=== PATIENT | female | born 1990 | race Caucasian/White ===

== ENCOUNTER 2020-01-10 21:04 | Inpatient (IN) | payer MEDICAID, SELFPAY ==
[2020-01-10 21:03] LABS: ROM Internal Control Test YES-OK TO RESULT pt. (Internal QC)
[2020-01-10 21:04] LABS: ROM Patient Test POSITIVE (Negative)
[2020-01-10] MEDS: Lactated Ringers 1,000 ML 50 ML IV (21:15)
[2020-01-10 21:43] LABS: Absolute Lymphocyte Count 2.27 X10^3/uL (0.83-4.51); Absolute Neutrophil Count 5.9 X10^3/uL (2.0-7.7); Basophil# 0.03 X10^3/uL; Basophil% 0.3 % (0-1); Eosinophil# 0.07 X10^3/uL; Eosinophils% 0.8 % (0-5); Hematocrit 34.9 % (37-47); Hemoglobin 11.2 g/dL (12.0-15.0); Lymphocyte # 2.27 X10^3/ul (4.0); Lymphocyte % 24.7 % (19-41); Mean Corp Hgb Conc 32.1 g/dL (32-36); Mean Corpuscular Hgb 26.7 pg (27.0-32.0); Mean Corpuscular Volume 83.1 fL (81-99); Mean Platelet Vol. 12.1 fl (6.2-12.0); Monocyte# 0.94 X10^3/uL; Monocyte% 10.2 % (0-10); NRBC Flagged by Analyzer 0 % (0-5); Neutrophil # 5.85 X10^3/uL (2.7-7.7); Neutrophil % 63.8 % (47-70); Platelet Count 191 K/mm3 (150-450); RBC Distribution Width CV 12.7 % (11.6-14.6); RBC Distribution Width SD 38.3 fl (35.1-43.9); White Blood Count 9.2 K/mm3 (4.4-11.0)
[2020-01-10 21:48] VITALS: BMI 37.1
[2020-01-10 22:10] VITALS: BP 106/61; PULSE 92; TEMP 36.8
[2020-01-10 22:12] VITALS: PULSE 97; O2SAT 98
[2020-01-10 22:17] VITALS: PULSE 93; O2SAT 98
[2020-01-10 22:22] VITALS: PULSE 95; O2SAT 99
[2020-01-10 22:27] VITALS: PULSE 94; O2SAT 99
[2020-01-10 23:02] LABS: Probe Check PASS; SARS-COV-2 DNA by PCR Negative (Negative); Specimen Processing Control PASS
[2020-01-11] VITALS (19 sets, daily range): BP systolic 100–140; BP diastolic 56–100; PULSE 63–109; RESP 16–18; TEMP 36.5–37.7; O2SAT 93–99
[2020-01-11] MEDS: Lactated Ringers 500 ML 999 ML IV (00:13)
[2020-01-11] MEDS: Oxytocin 30 units/NS 500 ml 30 UNITS/500 ML IV.SOLN 334 UNITS IV (00:48)
--- NOTE | 2020-01-11 01:05 | PCM.HP.OB ---
- Problem List (1) Late care Status: Acute (2) History of hypothyroidism Status: Acute (3) History of depression Status: Acute (4) History of precipitous delivery Status: Acute (5) Obesity affecting Status: Acute History Date of Admission: 02/20/17 Final HELEN: 01/14/20 Final HELEN Source: LMP Gestational age: 39 Weeks and 4 Days History of this : This is a 29 year-old, G [3], P [], at 39 weeks gestational age. Presented to labor and delivery with SROM clear fluid around 8:15pm last night. Contractions regular every 2-3 minutes. Good movement. Allergies No Known Allergies Allergy (Verified 01/10/20 22:05) Home Medications: Home Medications Levothyroxine [Synthroid] 50 mcg PO DAILY 04/29/17 Vits [Prenatabs FA] 1 tablet PO DAILY 05/11/17 Smoking Status: Never smoker Alcohol: None Number of Fetus(es): 1 History Past Pregnancies: Past Pregnancies Delivery Date Name GA/ Weeks Outcome Route Wt Sex Labor Length Anesthesia Delivery Location Provider FOB Labs: Mom's Problem List Problem Status Onset Code Late care Acute O09.30 History of hypothyroidism Acute Z86.39 History of depression Acute Z87.59, Z86.59 History of precipitous delivery Acute Z87.59 Obesity affecting Acute O99.210 Mom's Labs & Results 01/10/20 01/10/20 01/10/20 20:50 21:15 21:15 WBC 9.2 RBC 4.20 Hgb 11.2 L Hct 34.9 L MCV 83.1 MCH 26.7 L MCHC 32.1 RDW Std Deviation 38.3 RDW Coeff of Umm 12.7 Plt Count 191 MPV 12.1 H Immature Gran % (Auto) 0.200 Neut % (Auto) 63.8 Lymph % (Auto) 24.7 [place] % (Auto) 10.2 H Eos % (Auto) 0.8 Baso % (Auto) 0.3 Absolute Neuts (auto) 5.9 Absolute Lymphs (auto) 2.27 Nucleated RBC % 0 Vag Amniotic Fld Detect POSITIVE H COVID-19 (CIT[place]Y) Blood Type A POSITIVE Antibody Screen NEGATIVE 01/10/20 01/10/20 21:50 21:50 WBC RBC Hgb Hct MCV MCH MCHC RDW Std Deviation RDW Coeff of Umm Plt Count MPV Immature Gran % (Auto) Neut % (Auto) Lymph % (Auto) [place] % (Auto) Eos % (Auto) Baso % (Auto) Absolute Neuts (auto) Absolute Lymphs (auto) Nucleated RBC % Vag Amniotic Fld Detect COVID-19 (CIT[place]) Cancelled Negative Blood Type Antibody Screen Course Did the patient receive Yes care? Labs Blood Type: A RH: POSITIVE RPR/VDRL/Syphilis Nonreactive Rubella status Immune HbSAg Negative Date Done: 09/22/19 Chlamydia Negative Gonorrhea Negative HIV/AIDS Non-Reactive Group B Strep: Positive Current Obstetrical History Gestational Diabetes No Incompetent Cervix No Infertility No IUGR No Macrosomia No Hypertension/Pre-eclampsia No Placenta Previa/Abruption No PTL/PROM No Uterine anomaly No Oligohydramnios No Polyhydramnios No Multiple gestation No Past Medical History Asthma No Diabetes No Hypertension No Heart disease No Mitral valve prolapse No Neurologic/Seizure disorder/ No Migraines Kidney disease No Liver disease No Varicosities No Clotting disorders/Hx of DVT No Thyroid Dysfunction Yes: hypothyroidism Psychiatric disorders No Major trauma No Abnormal PAP smear No Sleep apnea No Mammogram in the last 2 years No Social History Marital Status: Alleged father Sergey Hx Smoking No Smoking Status Never smoker Physical Exam Vitals: Vital Signs Temp Pulse BP Pulse Ox 98.2 F 109 H 135/100 H 97 01/11/20 00:03 01/11/20 00:04 01/11/20 00:03 01/11/20 00:04 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 A:Active labor, SROM P: 1) Admit too labor and delivery 2) Routine labs 3) COVID rapid test, denies any symptoms 4) Plan for unmedicated 5) Dr.James masterson physician and notified of admission Essential Procedure Criteria Procedure Essential: Yes Criteria Note: On 11/07/2019 the [place] Department of Health ([facility]) Public Order signed by [facility] Director [place] M.D., regarding the Management of Non-Essential Surgeries and Procedures for the purpose of preserving Personal Protective Equipment (PPE) and critical hospital capacity and resources within [place] went into effect as of 11/08/2019 at 5:00PM. According to the [facility] Public Order: This action will remain in full force and effect until the State of Emergency declared by the Governor no longer exists or the Director of the [facility] rescinds or modifies this Order.. This [facility] order stated all non-essential or elective surgeries and procedures that utilize PPE should be delayed unless there is undue risk to the current or future health of a patient. After reviewing the aforementioned [facility] Public Order and the patients clinical case, I have determined that the scheduled procedure meets the criteria to go forward. Risk to Patient if Procedure Delayed: Risk of rapidly worsening to severe symptoms if delayed
--- NOTE | 2020-01-11 01:14 | PCM.OPRPT ---
Problem List (1) Late care Status: Acute (2) History of hypothyroidism Status: Acute (3) History of depression Status: Acute (4) History of precipitous delivery Status: Acute (5) Obesity affecting Status: Acute (6) Vaginal delivery Status: Acute (7) Second degree perineal laceration Status: Acute Vaginal Delivery Maternal Presentation: Active Labor, Spontaneous Rupture of Membranes Amniotic Membrane Rupture Type: Spontaneous at home Amniotic Fluid Description: Clear Final HELEN: 01/14/20 Gestational age: 39 Weeks and 4 Days Date of Procedure: 01/11/20 Pre-Operative Diagnosis: SROM Post-Operative Diagnosis: Vaginal delivery Surgery/ Procedure Performed: Spontaneous Vaginal Delivery Type of Anesthesia: Local with 1% lidocaine Description of Procedure: SROM at home, admitted in labor at 3cm. Called into hospital and patient had delivered. Upon arrival, patient laying on maternal abdomen, strong cry, APGARS 8,9. Baby with good cry. Patient progressed from 7 cm to delivery per nursing staff in 15 minutes. Pitocin started for active 3rd stage management. Cord clamped and cut by FOB. Placenta delivered spontaneously intact, 3 vessel cord via rina. Fundus firm. Perineum inspected and revealed 2nd degree perineal laceration. Repaired with lidocaine and 3.0 vicryl. Well approximated and hemostasis achieved. Patient tolerated well. EBL 200ml. Mom and baby stable. Planning to breastfeed. Family bonding well. notified. Presentation: Vertex Placental Delivery Description: Spontaneous Placenta Disposition: [facility] Cord Vessel Description: 3 Vessels Cord Entanglement: None Estimated Blood Loss: 200 ml A gender: Male (1 minute): 8 (5 minute): 9 Episiotomy Description: None Laceration: Perineal Extension/lac, 2nd degree Medications given after delivery: IV Pitocin
[2020-01-11] MEDS: Acetaminophen 500 MG Tablet 1000 MG PO ×3 (03:10→22:42)
[2020-01-11] MEDS: 0.9% Saline Lock 10 ML Syringe IV (03:53)
[2020-01-11] MEDS: Levothyroxine 50 MCG Tablet PO (06:28)
[2020-01-11] MEDS: Ibuprofen 600 MG Tablet PO ×3 (07:41→23:42)
[2020-01-11] MEDS: Prenatal Vits Tablet 1 TABLET PO (13:04)
--- NOTE | 2020-01-11 15:30 | CASEMGMT ---
Social Work Assessment Labor and Delivery Unit Patient Address: [address] [place] [address] Phone number: [phone] Date of Referral: 01.11.2020 Time of Referral: 829 Referred By: notification by nursing staff, head chargerKIANA Burgess Date of Intervention: 01.11.2020 Time of Intervention: 1529 Reason for Referral: late care. *noted in chart maternal history of depression* History obtained from: medical records and mother of baby (MOB) Thalia Salguero; father of baby (FOB) Sergey Salguero also present. Household composition: MOB, FOB, and two older children. Home situation is reported as safe and adequate. Patient's parent/guardian status: JAMEL is a 29 year old / ([place] decent) female, to FOB Sergey Salguero who is age 28 and of decent. MOB and FOSophie are and have 3 children. Upon admission MOB has denied any concerns for abuse. No indication during assessment of concerns. Minor children are: Leon Salguero (born 12.29.2009), Jessica Salguero (born 02.21.2017), and Tigre Salguero (born 01.11.20). Medical History: JAMEL is G3, P2 to 3 after delivering Tigre. care late starting between 20-23 weeks, but regular thereafter. MOB with history of precipitous deliveries. Baby Tigre was born weighing 9 pounds 3 ounces, Apgars 8 and 9 after . Educational Status: JAMEL has 14 years of education. No issues with reading, writing or learning comprehension. Financial Status: FOB works doing [employer] management. 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. Plans to take time off and be at home with the kids. Supplies: MOB reports to have needed baby supplies, including safe sleep space and car seat. MOB is baby, and reports breastfed last child for over a year. Childcare/Caregiver(s): MOB and then help from FOB. Transportation: No issues. Programs/Agencies Involved: S for medical. No other involvement but reports to be aware of [facility] if needed. Children Services/Legal Issues: None reported. Behavioral Health Issues: Mental Health History: MOB reports thought that may have had some depression after first child was born. MOB reports was a teen mom, first time mom, FOB was going to college, and then other social factors going on in life. MOB reports a brief period after daughter when felt down but overall felt okay. MOB admits at the beginning of MOB was feeling down and weepy and was referred to counseling. MOB did not go as once got home felt okay, and felt that overall it was just a bad day rather than actual depression. No reported history of any suicidal or homicidal ideation. Substance Use History: Denied by MOB and FOB both. Drug Screens: maternal drug screen on 09.22.2019 negative. Baby's urine is negative at delivery. Family/Social Stressors: MOB did have some down days at beginning of , but reports overall feeling okay. MOB admits she was worried about going form 2 to 3 children and how this will be managed. MOB did have late care, reporting that applied for the wrong type of insurance which delayed getting things straight at [employer]. Support Systems: MOB reports to have FOSophie, her grandparents, and FOB's parents around who are helpful. FOB can central supply worker as needed so there is some availability to help out. Depression/Shaken Baby/Safe Sleeping : Educated to drepssoin and anxiety, what to look for, risk factors, and importance of letting others know if symptoms arise. Educated that fathers can also experience . Educated to safe sleeping. Information provided shaken baby prevention. ASSESSMENT: Met with with MOB and FOB in room together. MOB held baby and was attentive baby during social work stay. MOB heads good eye contact. Mood and affect appropriate. MOB and FOB both listened to education provided, and resources available. MOB reports to be feeling okay now, but does worry about transitioning to 3 kids. Normalized worry while also encouraging MOB to ask for help and take time for self when needed, that it is okay to do so and that everyone benefits from extra support once in while. MOB egresses understanding. FOB smiled and nodded head when this was being discussed. MOB reports to have needed supplies, to have support, and also reports to feel a connection to the baby. No voiced concerns by nursing staff on parents/child interactions or bonding. MOB reports it will not be an issue to get the baby to follow up appointments. PLAN: MOB and baby to home when ready. [facility] resource packet given of services providing counseling, parent support, in-kind support. mood and anxiety packet given which including resource for parents. No other services requested or indicated. -RULA Soares, MARGARINE CHURN OPERATOR
[2020-01-12 03:40] VITALS: BP 102/56; PULSE 71; RESP 18; TEMP 36.7
[2020-01-12] MEDS: Ibuprofen 600 MG Tablet PO ×2 (05:43→12:51)
[2020-01-12] MEDS: Levothyroxine 50 MCG Tablet PO (05:43)
--- NOTE | 2020-01-12 07:16 | PCM.PN.OB ---
Patient Problems: Active and Suspected Problems Late care (Acute) History of hypothyroidism (Acute) History of depression (Acute) History of precipitous delivery (Acute) Obesity affecting (Acute) Vaginal delivery (Acute) Second degree perineal laceration (Acute) Subjective: Patient seen at bedside, doing well. Patient reports good pain control. Mild lochia. Breast-feeding going well. Patient is not ready for DC home today per her request. - Physical Exam Vitals/I&O's: Vital Signs Temp Pulse Resp BP Pulse Ox 98.0 F 71 18 102/56 L 98 01/12/20 03:40 01/12/20 03:40 01/12/20 03:40 01/12/20 03:40 01/11/20 02:56 Oxygen Delivery Method Room Air Weight: 104.4 kg Body Mass Index (BMI) 37.1 Intake and Output for Last 24 Hours 01/10/20 01/11/20 01/12/20 23:59 23:59 23:59 Intake Total 225 / 225 1202.33 / 1202.33 Output Total 50 / 50 350 / 350 Balance 175 / 175 852.33 / 852.33 General: Alert, Oriented x3 Extremities: No Calf Tenderness Current Medications Acetaminophen (Tylenol) 1,000 mg PO Q8H PRN PRN PRN Reason: Pain Score 1-10/10 Last Admin: 01/11/20 22:42 Dose: 1,000 mg Documented by: Bisacodyl (Dulcolax) 10 mg RECTAL UD PRN PRN Reason: If no BM Dibucaine (Dibucaine) 1 applic TOPICAL TID PRN PRN; Protocol PRN Reason: Discomfort Hydrocortisone (Hytone) 1 applic TOPICAL TID PRN PRN; Protocol PRN Reason: Discomfort Ibuprofen (Motrin) 600 mg PO Q6H PRN PRN PRN Reason: Pain Score 1-10/10 Last Admin: 01/12/20 05:43 Dose: 600 mg Documented by: Levothyroxine Sodium (Synthroid) 50 mcg PO DAILY@0600 FLASH Last Admin: 01/12/20 05:43 Dose: 50 mcg Documented by: Methylergonovine Maleate (Methergine) 0.2 mg IM X1 PRN PRN Reason: Excess bleeding/uterine atony Ondansetron HCl (Zofran) 4 mg IV Q4H PRN PRN PRN Reason: Nausea Multivit/Folic Acid/Iron (Prenatabs Fa) 1 tablet PO DAILY FLASH Last Admin: 01/11/20 13:04 Dose: 1 tablet Documented by: Senna/Docusate Sodium (Senokot-S, Nikki-Colace) 1 - 2 tablet PO DAILY PRN PRN PRN Reason: Constipation Simethicone (Mylicon) 80 mg PO PCHS PRN PRN Reason: Indigestion/Stomach pain Sodium Chloride () 5 - 15 ml IV UD PRN PRN Reason: SALINE FLUSH Last Admin: 01/11/20 03:53 Dose: 10 ml Documented by: Medical Necessity - Tobacco Use Smoking Status: Never smoker Assessment/Plan All Active Problems Late care (Acute) History of hypothyroidism (Acute) History of depression (Acute) History of precipitous delivery (Acute) Obesity affecting (Acute) Vaginal delivery (Acute) Second degree perineal laceration (Acute) Biliary colic (Acute) PPD#1, doing well routine care pain mgmt
[2020-01-12] MEDS: Acetaminophen 500 MG Tablet 1000 MG PO ×2 (09:02→17:18)
[2020-01-12 09:06] VITALS: BP 105/68; PULSE 75; RESP 18; TEMP 36.6
[2020-01-12] MEDS: Prenatal Vits Tablet 1 TABLET PO (12:51)
[2020-01-12 12:56] VITALS: BP 116/74; PULSE 72; RESP 18; TEMP 36.6; O2SAT 98
[2020-01-12 16:05] VITALS: BP 112/72; PULSE 72; RESP 18; TEMP 36.6; O2SAT 96
[2020-01-12] MEDS: oxyCODONE 5 MG Tablet PO (16:05)
[2020-01-12 21:15] VITALS: BP 115/66; PULSE 70; RESP 18; TEMP 36.7
[2020-01-13 02:28] VITALS: BP 115/73; PULSE 81; RESP 16; TEMP 36.3
[2020-01-13] MEDS: Ibuprofen 600 MG Tablet PO (05:22)
[2020-01-13] MEDS: Acetaminophen 500 MG Tablet 1000 MG PO (05:22)
[2020-01-13] MEDS: Levothyroxine 50 MCG Tablet PO (05:22)
[2020-01-13 07:33] VITALS: BP 102/66; PULSE 91; RESP 16; TEMP 36.7; O2SAT 99
--- NOTE | 2020-01-13 08:20 | DCINST_ITS ---
Discharge Diet: No Restrictions Discharge Activity: Return to Normal Activity, May not drive while taking narcotic pain medications., May Shower May resume sexual activity in: 4-6 weeks Additional Activity Instructions:: Nothing in the vagina for 4-6 weeks. You may return to work/school in 6 weeks. Call your doctor if your incision/area has: Continuous Slow Oozing, Sudden Increased Bleeding, Increased Pain/ Swelling, Increased Redness, Foul Smelling Discharge Additional Instructions: If you experience any of the following, contact your healthcare provider. * Bleeding that soaks a pad every hour for 2 hours * Fever 100.4 or higher * Unrelieved incision or abdominal pain * Swelling, redness, discharge or bleeding from your incision or episiotomy site * Your incision begins to separate * Problems urinating (including inability to urinate or burning while urinating). * Visual changes * Severe headache * Flu-like symptoms * Pain or redness in one of both of your breasts * Pain, warmth, tenderness or swelling in your legs, especially the calf area * Frequent nausea and vomiting * Symptoms of depression or anxiety If you experience any of the following, call 911 or go to the nearest Emergency Room. * Chest pain * Problems breathing * Seizure activity * Partial or complete paralysis of a body part, slurred speech, weakness or drooping of the face, or a sudden inability to walk or hold your balance Allergies/Adverse Reactions: Allergies No Known Allergies Allergy (Verified 01/10/20 22:05) Medications to take at Discharge Levothyroxine [Synthroid] 50 mcg PO DAILY 04/29/17 Vits [Prenatabs FA ] 1 tablet PO DAILY 05/11/17 Ibuprofen [Motrin] 600 mg PO Q6H PRN #60 tab 01/13/20 The following prescriptions were given: Ibuprofen [Motrin] 600 mg PO Q6H PRN #60 tab PRN Reason: Pain Transmission [id number] Please Follow Up With: Kaylyn Oliver, ISIDRO - [phone] When: Call to make an appointment in our office in 1-2 and 6 weeks or as needed Primary Care Physician: Care Physician,No Primary [Primary Care Provider] - Test Results: Test results from this visit will be discussed in further detail at your follow- up appointment, if applicable.
--- NOTE | 2020-01-13 08:20 | PCM.DCVAG ---
Discharge Diet: No Restrictions Discharge Activity: Return to Normal Activity, May not drive while taking narcotic pain medications., May Shower May resume sexual activity in: 4-6 weeks Additional Activity Instructions:: Nothing in the vagina for 4-6 weeks. You may return to work/school in 6 weeks. Call your doctor if your incision/area has: Continuous Slow Oozing, Sudden Increased Bleeding, Increased Pain/ Swelling, Increased Redness, Foul Smelling Discharge Additional Instructions: If you experience any of the following, contact your healthcare provider. Bleeding that soaks a pad every hour for 2 hours Fever 100.4 or higher Unrelieved incision or abdominal pain Swelling, redness, discharge or bleeding from your incision or episiotomy site Your incision begins to separate Problems urinating (including inability to urinate or burning while urinating). Visual changes Severe headache Flu-like symptoms Pain or redness in one of both of your breasts Pain, warmth, tenderness or swelling in your legs, especially the calf area Frequent nausea and vomiting Symptoms of depression or anxiety If you experience any of the following, call 911 or go to the nearest Emergency Room. Chest pain Problems breathing Seizure activity Partial or complete paralysis of a body part, slurred speech, weakness or drooping of the face, or a sudden inability to walk or hold your balance Allergies/Adverse Reactions: Allergies No Known Allergies Allergy (Verified 01/10/20 22:05) Medications to take at Discharge Levothyroxine [Synthroid] 50 mcg PO DAILY 04/29/17 Vits [Prenatabs FA ] 1 tablet PO DAILY 05/11/17 Ibuprofen [Motrin] 600 mg PO Q6H PRN #60 tab 01/13/20 The following prescriptions were given: Ibuprofen [Motrin] 600 mg PO Q6H PRN #60 tab PRN Reason: Pain Transmission Status: Pending to [id number] Please Follow Up With: Kaylyn Oliver, AYANA - [phone] When: Call to make an appointment in our office in 1-2 and 6 weeks or as needed Primary Care Physician: Care Physician,No Primary [Primary Care Provider] - Test Results: Test results from this visit will be discussed in further detail at your follow-up appointment, if applicable.
--- NOTE | 2020-01-13 08:51 | PCM.PN.OB ---
Patient Problems: Active and Suspected Problems Late care (Acute) History of hypothyroidism (Acute) History of depression (Acute) History of precipitous delivery (Acute) Obesity affecting (Acute) Vaginal delivery (Acute) Second degree perineal laceration (Acute) Subjective: Pain well controlled. Average lochia. - Physical Exam Vitals/I&O's: Vital Signs Temp Pulse Resp BP Pulse Ox 98.0 F 91 16 102/66 99 01/13/20 07:33 01/13/20 07:33 01/13/20 07:33 01/13/20 07:33 01/13/20 07:33 Oxygen Delivery Method Room Air Weight: 104.4 kg Body Mass Index (BMI) 37.1 Intake and Output for Last 24 Hours 01/11/20 01/12/20 01/13/20 23:59 23:59 23:59 Intake Total 1202.33 / 1202.33 Output Total 350 / 350 Balance 852.33 / 852.33 General: Alert, Cooperative, No apparent distress Current Medications Acetaminophen (Tylenol) 1,000 mg PO Q8H PRN PRN PRN Reason: Pain Score 1-10/10 Last Admin: 01/13/20 05:22 Dose: 1,000 mg Documented by: Bisacodyl (Dulcolax) 10 mg RECTAL UD PRN PRN Reason: If no BM Dibucaine (Dibucaine) 1 applic TOPICAL TID PRN PRN; Protocol PRN Reason: Discomfort Hydrocortisone (Hytone) 1 applic TOPICAL TID PRN PRN; Protocol PRN Reason: Discomfort Ibuprofen (Motrin) 600 mg PO Q6H PRN PRN PRN Reason: Pain Score 1-10/10 Last Admin: 01/13/20 05:22 Dose: 600 mg Documented by: Levothyroxine Sodium (Synthroid) 50 mcg PO DAILY@0600 FLASH Last Admin: 01/13/20 05:22 Dose: 50 mcg Documented by: Methylergonovine Maleate (Methergine) 0.2 mg IM X1 PRN PRN Reason: Excess bleeding/uterine atony Ondansetron HCl (Zofran) 4 mg IV Q4H PRN PRN PRN Reason: Nausea Oxycodone HCl (Oxyir) 2.5 - 5 mg PO Q4H PRN PRN PRN Reason: Pain Score 4-10/10 Last Admin: 01/12/20 16:05 Dose: 5 mg Documented by: Multivit/Folic Acid/Iron (Prenatabs Fa) 1 tablet PO DAILY FLASH Last Admin: 01/12/20 12:51 Dose: 1 tablet Documented by: Senna/Docusate Sodium (Senokot-S, Nikki-Colace) 1 - 2 tablet PO DAILY PRN PRN PRN Reason: Constipation Simethicone (Mylicon) 80 mg PO PCHS PRN PRN Reason: Indigestion/Stomach pain Sodium Chloride () 5 - 15 ml IV UD PRN PRN Reason: SALINE FLUSH Last Admin: 01/11/20 03:53 Dose: 10 ml Documented by: Medical Necessity - Tobacco Use Smoking Status: Never smoker Assessment/Plan All Active Problems Late care (Acute) History of hypothyroidism (Acute) History of depression (Acute) History of precipitous delivery (Acute) Obesity affecting (Acute) Vaginal delivery (Acute) Second degree perineal laceration (Acute) Biliary colic (Acute) day #2 status post vaginal delivery. Ready for discharge. is under bili lights. Breast-feeding and doing well.
--- OUTSIDE RECORDS SUMMARY | 2020-06-04 15:08 | XMS RPT_ITS | CCD ---
:1990 External Reference #:[id number] Author Organization [facility] Care Team Providers Name Role Phone Margareth NAIDU, Shilpi Unavailable Katelin Doll Unavailable Unavailable Cachorro NAIDU, L Unavailable Medications Medication Name Sig Date Prescriber Location thyroxine SYNTHROID 50 MCG TABS 05-07-2017 [facility] ([id number]) LEVOTHYROXINE SODIUM [id number] Bruno Zuluaga MD SYNTHROID 50 MCG TABS once daily 05-07-2017 [facility] ([id number]) LEVOTHYROXINE SODIUM [id number] Bruno Zuluaga MD SYNTHROID 50 MCG TABS once daily 05-07-2017 [facility] ([id number]) LEVOTHYROXINE SODIUM [id number] Bruno Zuluaga MD SYNTHROID 50 MCG TABS once daily 05-07-2017 [facility] ([id number]) LEVOTHYROXINE SODIUM [id number] Bruno Zuluaga MD SYNTHROID 50 MCG TABS once daily 05-07-2017 [facility] ([id number]) LEVOTHYROXINE SODIUM [id number] Bruno Zuluaga MD SYNTHROID 50 MCG TABS once daily 05-07-2017 [facility] ([id number]) LEVOTHYROXINE SODIUM [id number] Bruno Zuluaga MD Problems Active Problems Category Problem Name Status Date Location Thyroid disorders Hypothyroidism Active 05-07-2017 - [facility] ([id number]) Unclassified Unknown / UNK(Unknown) Active 02-08-2017 - [facility] ([id number]) Past or Other Problems Category Problem Name Status Date Location Biliary tract disease Biliary colic Completed 05-07-2017 - [facility] ([id number]) Results Result Name Value Range Unit Interpretation Flag Date Location cnpn on 2020-03-24 CNPN Telephone (ENDOAL) Normal 03-24-2020 [facility] PAGE SALGUERO ([id number]) 1990 [facility] Date Time Provider Department ([id number]) 03/24/20 SUSHANT STOKES During your visit today, we recorded the following informati on about you: Sushant Stokes DO 03/24/2020 8:09 AM Signed Sent the following via [employer]: Page- Your thyroid studies remain at goal- you should continue lev othyroxine 50 mcg/day + extra 1/2 tab on wed and Wednesday as you are d oing. I would like you to get thyroid studies repeated prior to your follow u p with me next spring- let me know if you need anything in the meantime. Thanks! Dr Stokes Allergies As of Date: 03/24/2020 (No Known Allergies) Date Reviewed: 03/05/2020 Reviewed by: Shellie Forman - Fully Assessed Reason for Visit: Results [95] Cmt: thyorid Primary Visit Diagnosis:Hypothyroidism (acquired) [E03.9] Order(s):TSH BLD [SQTSH] Order #: [id number] FUTURE T4 FREE/FREE THYROX [SQFT4] Order #: [id number] FUTURE Prescriptions as of 03/24/2020 Sig: ETONOGESTREL 68 MG SUBDERMAL * 1 Each by SUBDERMAL route as * LEVOTHYROXINE 50 MCG TABLET One tab daily + 1/2 tab satur* VITAMIN TABLET Take 1 tablet by mouth. Problem List As Of Date 03/24/2020 Noted Resolved Herpes simplex [B00.9] More... [Z34.81] 08/12/2016 01/19/2020 Hypothyroidism [E03.9] 09/05/2016 Hematuria [R31.9] 09/05/2016 01/19/2020 More... Late care affecting in first*09/21/2019 0 01/19/2020 More... History of hypothyroidism [Z86.39] 09/21/2019 01/19/2020 More... History of depression [Z87.59, Z86.5*09/21/2019 0 01/19/2020 More... History of precipitous delivery [Z87.59] 10/20/2019 01/19/20 20 Obesity in , antepartum [O99.210] 10/20/20192019 More... Abnormal glucose in , antepartum [O99.*10/22/2019 0 01/19/2020 More... Obesity, Class II, BMI 35-39.9 [E66.9] 03/05/2020 Encounter Status:Closed by SUSHANT STOKES DO on 03/24/20 tsh on 2020-03-19 TSH Qn 2.160 0.270-4.200 uU/mL Normal 03-19-2020 [facility] ([id number]) Comment: Result Comment: If the patie nt is , TSH reference range varies by gestational period: First Trimester (weeks 9-12) : 0.180-2.990 mcIU/mL Second Trimester: 0.110-3.98 0 mcIU/mL Third Trimester: 0.480-4.710 mcIU/mL Asad Dela Cruz, et al. A Practica l Approach for the Verifications and Determination of Site- and Trimester-Specific Reference Intervals for Thyroid Function tests in . Thyroid, 2019:29:3:412-420. Al cinthia E, et al. 2017 Guide lines of the [employer] [employer] for the Diagnosis and Management of Thyroid Disease during and the . Thyroid, 2017:27:3:315-389. Performed By: #### SYPHTX, R UBIGG, HIV12C, AHCV1B, HBSAG, TSH, T4FTI, T3, CBC #### [facility] [address] [place], [place] [address] t4 on 2020-03-19 T4 [Mass/Vol] 6.0 5.5-10.2 ug/dL Normal 03-19-2020 [facility] ([id number]) Comment: Performed By: #### SYPHTX, R UBIGG, HIV12C, AHCV1B, HBSAG, TSH, T4FTI, T3, CBC #### [facility] [address] [place], [place] [address] free t4 on Free T4 [Mass/Vol] 1.0 0.9-1.7 ng/dL Normal 03-19-2020 [facility] ([id number]) Comment: Performed By: #### SYPHTX, R UBIGG, HIV12C, AHCV1B, HBSAG, TSH, T4FTI, T3, CBC #### [facility] [address] [place], [place] [address] progress on 2020-02 PROGRESS HNO ID: [id number] Normal 03-05-2020 [facility] Author: Shellie Forman [facility] ([id number]) Service: ? Author Type: Physician Type: Progress Notes Filed: 03/05/2020 2:10 PM Note Text: Page Salguero is a 30 year old female who presents for Nexp lanon insertion. Patient's last menstrual period was 05/01/2019. VITALS: LMP 05/01/2019 test: negative Nexplanon lot #: [id number] Exp date: 05/20/2022 UNIVERSAL PROTOCOL / SAFETY CHECKLIST Procedure to be performed: Nexplanon insertion Sign in Communication: Completed Time Out: Team Confirms the Correct Patient, Correct Procedu re, Correct Site and Site Marking, Correct Position (if applicable), Pre p and Dry Time (if applicable). Time: 1402 Affirmation of Time Out: YES Sign Out Discussion: Completed Shellie Forman M.D. TECHNIQUE: Patient placed in supine position with left) bent at the elb ow and placed over the head. Skin cleansed with betadine. 0.5mL of 1% lido michael with 1:100,000 epi injected subQ along insertion site. Nexplanon aziza inserted under sterile technique. The aziza was palpable under the skin after insertion and the notch visible on the trochar after inserti on. Steristrips and sterile pressure dressing applied. AANDP: Nexplanon inserted without complications. Advised to use backup contraception for 7 days. Shellie Forman MD cnov on 2020-03-05 CNOV Office Visit (OBGYWM) Normal 03-05-20 [facility] PAGE SALGUERO ([id number]) 1990 [facility] Date Time Provider Department ([id number]) 03/05/20 1:40 PM SHELLIE FORMAN OBGYWM During your visit today, we recorded the following informati on about you: Blood pressure Weight 110/62 99.3 kg Shellie Forman MD 03/05/2020 2:10 PM Signed Page Salguero is a 30 year old female who presents fo r Nexplanon insertion. Patient's last menstrual period was 05/01/2019. VITALS: LMP 05/01/2019 test: negative Nexplanon lot #: [id number] Exp date: 05/20/2022 UNIVERSAL PROTOCOL / SAFETY CHECKLIST Procedure to be performed: Nexplanon insertion Sign in Communication: Completed Time Out: Team Confirms the Correct Patient, Correct P rocedure, Correct Site and Site Marking, Correct Position (if applicable), Prep and Dry Time (if applicable). Time: 1402 Affirmation of Time Out: YES Sign Out Discussion: Completed Shellie Forman M.D. TECHNIQUE: Patient placed in supine position with l eft) bent at the elbow and placed over the head. Skin cleansed with betadine. 0.5mL of 1% lidocai ne with 1:100,000 epi injected subQ along insertion site. Nexplanon aziza inserted under sterile technique. The aziza was palpable under the skin after i nsertion and the notch visible on the trochar after insertion. Steristrips and ster ile pressure dressing applied. AANDP: Nexplanon inserted without complications. Advised to use backup contraception for 7 days. Shellie Forman MD [facility] 03/05/2020 1:43 PM Signed NEXPLANON PATIENT EDUCATION You may remove dressing in 24 hours. Expect some bruising around insertion site. You may take over the counter pain medication (i.e. Tyleno l, motrin, advil, etc) if you have discomfort. Call your provider with excessive bruising or pain. Continue to use condoms for STD prevention. You should use backup contraception for 7 days to prevent pr egnancy. Referring Provider: SHELLIE FORMAN [[id number]] Allergies As of Date: 03/05/2020 (No Known Allergies) Date Reviewed: 03/05/2020 Reviewed by: Shellie Forman - Fully Assessed Reason for Visit: Contraception [26] Primary Visit Diagnosis:Insertion of implantable subdermal c ontraceptive [Z30.017] Order(s):NEXPLANON INSERTION [1252587] Order #: [id number] [] etonogestrel subdermal implant 68 mg (NEXPLANON)Di sp: Rfl: etonogestrel (NEXPLANON) subdermal implant 68 mg1 Each by ROSS BDERMAL route as directed.Disp: 1 EachRfl: 0 HCG QUAL UR B/O [4035984] Order #: [id number] Prescriptions as of 03/05/2020 Sig: LEVOTHYROXINE 50 MCG TABLET One tab daily + 1/2 tab satur* VITAMIN TABLET Take 1 tablet by mouth. ETONOGESTREL 68 MG SUBDERMAL * 1 Each by SUBDERMAL route as * Problem List As Of Date 03/05/2020 Noted Resolved Herpes simplex [B00.9] More... [Z34.81] 08/12/2016 01/19/2020 Hypothyroidism [E03.9] 09/05/2016 Hematuria [R31.9] 09/05/2016 01/19/2020 More... Late care affecting in first*09/21/2019 0 01/19/2020 More... History of hypothyroidism [Z86.39] 09/21/2019 01/19/2020 More... History of depression [Z87.59, Z86.5*09/21/2019 0 01/19/2020 More... History of precipitous delivery [Z87.59] 10/20/2019 01/19/20 20 Obesity in , antepartum [O99.210] 10/20/20192019 More... Abnormal glucose in , antepartum [O99.*10/22/2019 0 01/19/2020 More... Obesity, Class II, BMI 35-39.9 [E66.9] 03/05/2020 Other instructions from your clinician: NEXPLANON PATIENT EDUCATION You may remove dressing in 24 hours. Expect some bruising around insertion site. You may take over the counter pain medication (i.e. Tylenol, motrin, advil, etc) if you have discomfort. Call your provider with excessive bruising or pain. Continue to use condoms for STD prevention. You should use backup contraception for 7 days to prevent pr egnancy. Prescriptions ordered this encounter Disp Refills Start End ETONOGESTREL 68 MG SUBDERMAL IMPLANT 03/05/2020 03/05/2020 Route: SDRM ETONOGESTREL 68 MG SUBDERMAL IMPLANT 1 Ea* 0 03/05/202002/20 Class: In Office Route: SDRM Si Each by SUBDERMAL route as directed. Encounter Status:Closed by SHELLIE FORMAN MD on 03/05/20 progress on 2020-02 PROGRESS HNO ID: [id number] Normal 02-21-2020 [facility] Author: Shellie Forman [facility] ([id number]) Service: ? Author Type: Physician Type: Progress Notes Filed: 02/21/2020 3:16 PM Note Text: VISIT Obstetric History T3 L3 SAB0 TAB0 Ectopic0 Multiple0 Live Births3 Name of Baby 1: Leon Date: 12/29/09 GA: 37w0d Delivery: Vaginal, Spontaneous Apgar1: Not recorded Apgar5: Not recorded Living: Living Name of Baby 2: Jessica Date: 02/21/17 GA: 39w1d Delivery: Vaginal, Spontaneous Apgar1: 8 Apgar5: 9 Living: Living Name of Baby 3: Moy Date: 01/11/20 GA: 39w4d Delivery: Vaginal, Spontaneous Apgar1: Not recorded Apgar5: Not recorded Living: Living Page Salguero is a 30 year old year old here for po stpartum visit. Delivery Summary: ROS/ Recovery: Feeding: Breast feeding problems: milk was slow to come in Menses since delivery: none Menstrual pattern prior to : Regular periods Mcnair since delivery: Resumed Depression: denies symptoms of depression. (Lines 3 AND 4 applicable if either Lines 1 or 2 are positiv e) 1. Over the past 2 weeks have you felt down, depressed, or h opeless? Negative 2. Over the past two weeks, have you felt little interest or pleasure in doing things? Negative 3. Have you had thoughts of harming yourself or others? N/A 4. [place] Depression Scale (EPDS) Total Score: 0 Emotional support: Yes Bowel symptoms: Negative for abdominal discomfort, blood in stools or black stools and change in bowel habits Abdomen: She reports no incisional redness, tenderness, eryt carlos Bladder symptoms: No dysuria, gross hematuria, urinary frequ ency, urinary urgency, or incontinence Other issues: None Last Pap: 2019 normal HPV: negative PAST MEDICAL HISTORY Diagnosis Date - Chlamydia - Eczema mild - Herpes simplex right cheek - Hypothyroidism 09/05/2016 - depression PAST SURGICAL HISTORY Procedure Laterality Date - CHOLECYSTECTOMY 05/13/2017 FAMILY HISTORY Problem Relation Age of Onset - Hypertension Mother - Eczema Mother - other (sleep apnea) Father - Eczema Sister - Eczema Maternal Grandmother - Diabetes Maternal Grandmother - No Known Problems Maternal Grandfather - No Known Problems Paternal Grandmother - Coronary Artery Disease Paternal Grandfather - No Known Problems Sister - Diabetes Maternal Aunt - No Known Problems Daughter - Asthma Son Social History Tobacco Use - Smoking status: Never Smoker - Smokeless tobacco: Never Used Substance Use Topics - Alcohol use: No - Drug use: No PHYSICAL EXAMINATION: BP 100/64 Wt 219 lb (99.3kg) LMP 05/01/2019 GENERAL: pleasant, female in no apparent distress HEENT: Normocephalic, atraumatic, mucus membranes moist and no lesions NECK: Supple, full range of motion, no adenopathy and thyroi d normal DERMATOLOGY: Normal, without lesions, non-icteric and non-hi rsute BREAST: soft, non-tender, symmetric, no dominant mass, anayeli l nipple-areolar complex, no lymphadenopathy and no nipple dis charge CHEST: Normal inspiratory effort ABDOMEN: soft, non-tender and no masses. INCISION: No incisi onal redness, swelling, or drainage PELVIC: external genitalia normal, normal Bartholin's glands , urethra, Silt's glands, no vulvar lesions, no cervical lesions, good vaginal support, physiologic discharge present, normal appearing per ineal body and perianal region BIMANUAL: uterus normal size, shape and consistency, no adne xal masses and non-tender NEURO: alert and oriented x3,exam grossly non-focal EXTREMITIES: normal ASSESSMENT AND PLAN: 30 year old status post with normal c ourse. Contraception plan: nexplanon Follow up: RTC for annual exams and PRN, return for nexplano n Shellie Forman MD progress on 2020-01 PROGRESS HNO ID: [id number] Normal 02-19-2020 [facility] Author: Sushant Stokes [facility] ([id number]) Service: ? Author Type: Physician Type: Progress Notes Filed: 02/19/2020 12:13 PM Note Text: Reason for Consultation: post f/u - hypothyroidsim. Referring Physician: Kaylyn Fabian APRN.CN [address] [facility] [address] My final recommendations will be communicated back to the re questing physician by way of shared Medical record or letter via US shilpi zavala. HISTORY OF PRESENT ILLNESS; Ms. Salguero is a 30 year old female here for her post par jean paul f/u- she delivered a 9lbs 3oz baby boy on 01/12. Her last visit with shilpi sanz was She was initially diagnosed with a thyroid disorder during in 2017. She has been taking levothyroxine 75 mcg/day since 2017- however stopped taking this prior to her . It was restarted at her first visit with ct - she has continued this after delivery.- current re gimen is levothyroxine 50 mcg/day + extra 1/2 tab on wed and Wednesday. Severity, modifying factors, context and associated signs an d symptoms are as follows: Severity, modifying factors, context and associated signs an d symptoms are as follows: ? Thyroid pain: no ? Mass effect: None ? Energy: stable ? Sleep: up at night with the baby ? Temperature Intolerance: none ? 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 ? GI: denies loose stools, frequent stools or constipation ? Weight: not quite back to prepregnancy weight. ? Eyes: Normal ? Memory: Good ? Diaphoresis: Not significant ? Skin: no issues ? Neuro: negative ? Radiological imaging with contrast dyes within the last 3 months? no ? History of radiation exposure to head or neck area? no PAST MEDICAL HISTORY Diagnosis Date - Chlamydia - Eczema mild - Herpes simplex right cheek - Hypothyroidism 09/05/2016 - depression PAST SURGICAL HISTORY Procedure Laterality Date - CHOLECYSTECTOMY 05/13/2017 FAMILY HISTORY Problem Relation Age of Onset - Hypertension Mother - Eczema Mother - other (sleep apnea) Father - Eczema Sister - Eczema Maternal Grandmother - Diabetes Maternal Grandmother - No Known Problems Maternal Grandfather - No Known Problems Paternal Grandmother - Coronary Artery Disease Paternal Grandfather - No Known Problems Sister - Diabetes Maternal Aunt - No Known Problems Daughter - Asthma Son Social History Tobacco Use - Smoking status: Never Smoker - Smokeless tobacco: Never Used Substance Use Topics - Alcohol use: No - Drug use: No Current Outpatient Medications Medication Sig Dispense Refill - levothyroxine (LEVOXYL) 50 mcg tablet One tab daily + 1/2 tab wednesday and wednesday - Ryuhksmo-Ns-Xey-Fe-FA ( VITAMIN) tab Take 1 tablet by mouth. No current facility-administered medications for this visit. Allergies As of Date: 02/19/2020 (No Known Allergies) Fully Assessed 02/19/2020 REVIEW OF SYSTEMS: General: no fever and no chills, not yet back to prepregnanc y weight. Cardiovascular: denies chest pain, heart palpitations or ort hopnea Resp: denies wheezing, productive cough or exertional dyspne a PHYSICAL EXAM: BP 123/72 Pulse 81 LMP 05/01/2019 GENERAL: Alert, no distress, cooperative SKIN: Skin color, texture, turgor normal. No rashes or lesio ns. HEAD/SINUSES: No significant findings EYES: sclera non-icteric, EOMs intact ,no lid lag or stare. EXTREMITIES: Normal exam of the extremities NEURO: AAO x 3, no focal deficits. The remainder of the physical exam is noncontributory. DATA: Component Latest Ref Rng AND Units 04/12/2018 09/22/20192019 T4 5.5 - 10.2 ug/dL 7.7 10.9 (H) T4 Uptake 0.91 - 1.19 1.39 (H) FTI 6.0 - 11.0 ug/dL 5.5 (L) TSH 0.270 - 4.200 uU/mL 5.780 (H) 3.890 3.460 Free T4 0.9 - 1.7 ng/dL 0.8 (L) Microsomal Antibody Date Value Ref Range Status 11/17/2016 <1.0 <5.6 IU/mL Final ASSESSMENT: Ms. Salguero is a 30 year old female here for her post par jean paul f/u- hx of hypothyroidism. No recent blood work- I advised her as fo llows: RECOMMENDATIONS: 1) for now- continue your current regimen levothyroxine 50 m cg/day + extra 1/2 tab on wed and Wednesday. 2) get blood work when are able- I will report these results to you when available. 3) see me in 9 months (virtual visit) I spent 20 minutes in this visit, with more than 50% of the time devoted to patient counseling. Sushant Stokes DO cnov on 2020-02-19 CNOV Office Visit (ENDOAL) Normal 02-19-[address] [place] [address] Brandy HOUSERASPAGE ([id number]) 1990 [facility] Time Provider Department ([id number]) 02/19/20 11:00 AM SUSHANT STOKES ENDOJENNIE During your visit today, we recorded the following informati on about you: Pulse Blood pressure 81/minute 123/72 Sushant Stokes DO 02/19/2020 12:13 PM Signed Reason for Consultation: post f/u - hypothyroidsim. Referring Physician: Kaylyn Fabian APRN.CN [address] [facility] [address] My final recommendations will be communi cated back to the requesting physician by way of shared Medical record or letter via [place] mail. HISTORY OF PRESENT ILLNESS; Ms. Salguero is a 30 year old female here for her post par jean paul f/u- she delivered a 9lbs 3oz baby boy on 01/12. Her last visit with shilpi sanz was She was initially diagnosed with a thyroid disorder duri ng in 2017. She has been taking levothyroxine 75 mcg/day since 2017- jose patel stopped taking this prior to her . It was restarted at her first visit with me - she has continued this after delivery.- current regimen is levothyroxine 50 mcg/day + extra 1/2 tab on wed and Wednesday. Severity, modifying factors, context and associa bessie signs and symptoms are as follows: Severity, modifying factors, context and associa bessie signs and symptoms are as follows: ? Thyroid pain: no ? Mass effect: None ? Energy: stable ? Sleep: up at night with the baby ? Temperature Intolerance: none ? 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 ? GI: denies loose stools, frequent stools or constipation ? Weight: not quite back to prepregnancy weight. ? Eyes: Normal ? Memory: Good ? Diaphoresis: Not significant ? Skin: no issues ? Neuro: negative ? Radiological imaging with contrast dyes within the last 3 months? no ? History of radiation exposure to head or neck area? no PAST MEDICAL HISTORY Diagnosis Date - Chlamydia - Eczema mild - Herpes simplex right cheek - Hypothyroidism 09/05/2016 - depression PAST SURGICAL HISTORY Procedure Laterality Date - CHOLECYSTECTOMY 05/13/2017 FAMILY HISTORY Problem Relation Age of Onset - Hypertension Mother - Eczema Mother - other (sleep apnea) Father - Eczema Sister - Eczema Maternal Grandmother - Diabetes Maternal Grandmother - No Known Problems Maternal Grandfather - No Known Problems Paternal Grandmother - Coronary Artery Disease Paternal Grandfather - No Known Problems Sister - Diabetes Maternal Aunt - No Known Problems Daughter - Asthma Son Social History Tobacco Use - Smoking status: Never Smoker - Smokeless tobacco: Never Used Substance Use Topics - Alcohol use: No - Drug use: No Current Outpatient Medications Medication Sig Dispense Refill - levothyroxine (LEVOXYL) 50 mcg tablet One tab daily + 1/2 tab wednesday and wednesday - Bnuedaqp-Pm-Dff-F e-FA ( VITAMIN) tab Take 1 tablet by mouth. No current facility-administered medications for this visit. Allergies As of Date: 02/19/2020 (No Known Allergies) Fully Assessed 02/19/2020 REVIEW OF SYSTEMS: General: no fever and no chills, not yet back to prepregnanc y weight. Cardiovascular: denies chest pain, heart palpitations or ort hopnea Resp: denies wheezing, productive cough or exertional dyspne a PHYSICAL EXAM: BP 123/72 Pulse 81 LMP 05/01/2019 GENERAL: Alert, no distress, cooperative SKIN: Skin color, texture, turgor normal. No rashes or lesio ns. HEAD/SINUSES: No significant findings EYES: sclera non-icteric, EOMs intact ,no lid lag or stare. EXTREMITIES: Normal exam of the extremities NEURO: AAO x 3, no focal deficits. The remainder of the physical exam is noncontributory. DATA: Component Latest Ref Rng AND Units 04/12/2018 09/22/20192019 T4 5.5 - 10.2 ug/dL 7.7 10.9 (H) T4 Uptake 0.91 - 1.19 1.39 (H) FTI 6.0 - 11.0 ug/dL 5.5 (L) TSH 0.270 - 4.200 uU/mL 5.780 (H) 3.890 3.460 Free T4 0.9 - 1.7 ng/dL 0.8 (L) Microsomal Antibody Date Value Ref Range Status 11/17/2016 <1.0 <5.6 IU/mL Final ASSESSMENT: Ms. Salguero is a 30 year old female here for her post par jean paul f/u- hx of hypothyroidism. No recent blood work- I advised her as follo ws: RECOMMENDATIONS: 1) for now- continue your current regime n levothyroxine 50 mcg/day + extra 1/2 tab on wed and Wednesday. 2) get blood work when are able- I will report these results to you when available. 3) see me in 9 months (virtual visit) I spent 20 minutes in this visit, with more than 50% of e time devoted to patient counseling. DO Sushant Streeter DO 02/19/2020 11:26 AM Addendum 1) for now- continue your current regime n levothyroxine 50 mcg/day + extra 1/2 tab on wed and Wednesday. 2) get blood work when are able- I will report these results to you when available. 3) see me in 9 months (virtual visit) Referring Provider: SUSHANT STOKES [[id number]] Allergies As of Date: 02/19/2020 (No Known Allergies) Date Reviewed: 02/19/2020 Reviewed by: Darlene Brooks MA - Fully Assessed Reason for Visit: Follow Up [171] Primary Visit Diagnosis:Hypothyroidism (acquired) [E03.9] Order(s):TSH BLD [SQTSH] Order #: [id number] FUTURE T4 FREE/FREE THYROX [SQFT4] Order #: [id number] FUTURE Prescriptions as of 02/19/2020 Sig: LEVOTHYROXINE 50 MCG TABLET One tab daily + 1/2 tab satur* VITAMIN TABLET Take 1 tablet by mouth. Problem List As Of Date 02/19/2020 Noted Resolved Herpes simplex [B00.9] More... [Z34.81] 08/12/2016 01/19/2020 Hypothyroidism [E03.9] 09/05/2016 Hematuria [R31.9] 09/05/2016 01/19/2020 More... Late care affecting in first*09/21/2019 0 01/19/2020 More... History of hypothyroidism [Z86.39] 09/21/2019 01/19/2020 More... History of depression [Z87.59, Z86.5*09/21/2019 0 01/19/2020 More... History of precipitous delivery [Z87.59] 10/20/2019 01/19/20 20 Obesity in , antepartum [O99.210] 10/20/20192019 More... Abnormal glucose in , antepartum [O99.*10/22/2019 0 01/19/2020 More... Other instructions from your clinician: 1) for now- continue your current regimen levothyroxine 50 m cg/day + extra 1/2 tab on wed and Wednesday. 2) get blood work when are able- I will report these results to you when available. 3) see me in 9 months (virtual visit) Follow-up and Disposition History Recorded Encounter Status:Closed by SUSHANT STOKES DO on 02/19/20 progress on 2019-12 PROGRESS HNO ID: [id number] Normal 01-19-2020 [facility] Author: Shellie Rush ([id number]) Service: ? Author Type: Physician Type: Progress Notes Filed: 01/19/2020 2:39 PM Note Text: EARLY VISIT Page Salguero is a 29 year old here for 1 week post visit. Delivery Summary: ROS: General: Denies any fever or chills Hypertension Screening: ? Headache? No. ? Visual Changes? No ? Epigastric Pain? No ? Increased Swelling? No ? Taking any BP medications at home? No ? If applicable, monitoring BP at home? (If Yes, include res ults) NA Mood: normal Depression: denies symptoms of depression. (Lines 3 AND 4 applicable if either Lines 1 or 2 are positiv e) 1. Over the past 2 weeks have you felt down, depressed, or h opeless? 2. Over the past two weeks, have you felt little interest or pleasure in doing things? 3. Have you had thoughts of harming yourself or others? N/A 4. [place] Depression Scale (EPDS) Total Score: N/A Feeding: Breast and bottle feeding problems: I nadequate milk supply so supplementing after Bladder: No dysuria, gross hematuria, urinary frequency, uri nary urgency, or incontinence Bowel symptoms: Negative for abdominal discomfort, blood in stools or black stools and change in bowel habits Abdomen: N/A Bleeding: light flow Bottom and Perineum: No issues Sleep: no sleep concerns, feels rested IEmotional support: Yes Exercise: N/A Other issues: None PHYSICAL EXAMINATION: LMP 05/01/2019 General: pleasant,female in no apparent distress, AANDO x 3. Skin warm and intact. ASSESSMENT AND PLAN: 1. 29 year old status post with normal postpartu m course. 2. Contraception plan: considering . Reinforced 6-week pelvi c rest. Encouraged condom usage should patient deviate. Follow up: Return to Clinic for 6 week visit and as needed Shellie Forman MD progress on 2019-12 PROGRESS HNO ID: [id number] Normal 01-12-2020 [facility] Author: Corinne Craft LPN ([id number]) Service: ? Author Type: ? Type: Progress Notes Filed: 01/12/2020 9:25 AM Note Text: Pt delivered via at [facility] on 01/11/20 per KENYA Mancini See OB Outcome note. Corinne Craft [employer] progress on 2019-12 PROGRESS HNO ID: [id number] Normal 01-03-2020 [facility] Author: Sahra Watson Brule ([id number]) Service: ? Author Type: Physician Type: Progress Notes Filed: 01/03/2020 9:36 AM Note Text: SW- Virtual visit today. No regular ctx's. No VB, LOF. Good FM. PE: Gen- NAD, well appearing See flowsheet A/p 38 wk gestation - H/o rapid labor and GBS pos. Discussed labor precautions a nd when to call/come in. Reviewed possible 40 wk IOL pending cervical e xam at next visit - Discussed upcoming expectations - RTO 1 wk for in office appointment Sahra Watson, DO Sahra Watson, DO group b strep pcr o n 2019-12-13 GROUP B STREP Positive for Group B Critically 11-22 [facility] PCR Streptococcus by PCR. abnormal [place] ([id number]) If susceptibility testing is needed and was not requested with initial test order, call lab ([phone]) within 5 days to initiate workup. Comment: Performed By: #### SYPHTX, R UBIGG, HIV12C, AHCV1B, HBSAG, TSH, T4FTI, T3, CBC #### [facility] [address] [place], [place] [address] progress on 2019-11 PROGRESS HNO ID: [id number] Normal 11-29-2019 [facility] Author: Alesha Rush ([id number]) Service: ? Author Type: Mail Handler Assistant Type: Progress Notes Filed: 11/29/2019 11:44 AM Note Text: Patient identified by name and date of . Page Salguero presents today for a vaccination of Tdap. Patient denies an allergy to latex: yes Patient denies a severe (life-threatening) allergy to a prev ious dose of Tdap, DTP, DTaP, DT or Td vaccine. Yes Patient denies history of epilepsy or neurological problems: Yes Patient is afebrile and denies being moderately or severely ill: Yes Patient denies history of Guillain-[place] Syndrome (a severe paralytic illness): Yes Tdap Adacel injection was given without incident. See immunizations for details of immunizations administered today. VIS sheet provided: Yes Provider Sahra Watson DO was present in office at time of i njection. Alesha Mojica MA cnco on 2019-11-25 CNCO Letter Text Normal 11-25-2019 [facility] ([id number]) tsh on 2019-11-21 TSH Qn 3.460 0.270-4.200 uU/mL Normal 11-21-2019 [facility] ([id number]) Comment: Result Comment: If the patie nt is , TSH reference range varies by gestational period: First Trimester (weeks 9-12) : 0.180-2.990 mcIU/mL Second Trimester: 0.110-3.98 0 mcIU/mL Third Trimester: 0.480-4.710 mcIU/mL Asad Dela Cruz et al. A Practica l Approach for the Verifications and Determination of Site- and Trimester-Specific Reference Intervals for Thyroid Function tests in . Thyroid, 2019:29:3:412-420. Al cinthia E, et al. 2017 Guide lines of the [place] [employer] for the Diagnosis and Management of Thyroid Disease during and the . Thyroid, 2017:27:3:315-389. Performed By: #### TSH, T4 # ###[facility] [place], [place] [phone]- [phone] t4 on 2019-11-21 T4 [Mass/Vol] 10.9 5.5-10.2 ug/dL High 11-21-2019 [facility] ([id number]) Comment: Performed By: #### TSH, T4 # ###[facility] [place], [place] [phone] progress on 2019-10 PROGRESS HNO ID: [id number] Normal 11-17-2019 [facility] Author: Sahra Watson ([id number]) Service: ? Author Type: Physician Type: Progress Notes Filed: 11/22/2019 4:08 PM Note Text: Kick counts good today BP today - 136/81, HR 86 Reviewed coronavirus RTO 2 wks Tdap shot progress on 2019-10 PROGRESS HNO ID: [id number] Normal 11-03-2019 [facility] Author: Kenny Peña ([id number]) Service: ? Author Type: Physician Type: Progress Notes Filed: 11/03/2019 10:27 AM Note Text: Please see ultrasound report for details of this visit. Kenny Peña M.D. progress on 2019-10 PROGRESS HNO ID: [id number] Normal 10-28-2019 [facility] Author: Sushant Rush ([id number]) Service: ? Author Type: Physician Type: Progress Notes Filed: 10/28/2019 1:17 PM Note Text: Patient presents with: Urinary Frequency Abdominal Pain HPI: Symptoms since last night. Dysuria: No Frequency: Yes Hematuria: No Nausea: nausea last night Fever or chills: No Back pain: No Abdominal pain: lower cramping Prior UTI: Yes Personal history of kidney stones: No Family history of kidney stones: Mother Almost 29 weeks pregant. MEDICATIONS: Current Outpatient Medications Medication Sig - levothyroxine (LEVOXYL) 50 mcg tablet Take 1 tablet by woody th once daily. - Xlaxppcb-Ia-Vvq-Fe-FA ( VITAMIN) tab Take 1 tablet by mouth. No current facility-administered medications for this visit. ALLERGIES: ALLERGIES No Known Allergies VITALS: BP 100/66 Pulse 92 Temp 37 ?C (98.6 ?F) (Tympanic) Res p 20 Wt 97.1 kg (214 lb) LMP 05/01/2019 BMI 34.54 kg/m? PHYSICAL EXAM: GEN: NAD HEENT: EOMI, conjunctiva clear, moist mucous membranes HEART: regular rate and rhythm, no murmurs LUNGS: clear to auscultation, no wheezes or crackles, no inc reased WOB ABDOMEN: Gravid, Soft, left and right lower pelvic tendernes s BACK: No CVA tenderness ASSESSMENT/PLAN: 1. Urinary frequency - ICD9: 788.41, ICD10: R35.0 (primary d iagnosis) 2. Lower abdominal pain - ICD9: 789.09, ICD10: R10.30 - UA DIP, URINE (POC) - negative, normal F/u in the ER with bloody discharge, fluid leaking, or worse keon cramps. Sushant Calderon MD cnov on 2019-10-28 CNOV Office Visit (UCWSTR) Normal 10-28-19 [facility] PAGE Sampson ([id number]) 1990 [facility] Date Time Provider Department ([id number]) 10/28/19 1:00 PM SUSHANT CALDERON [facility] During your visit today, we recorded the following informati on about you: Temperature Pulse Respiration Blood pressure 98.6 degrees 92/minute 20/minute 100/66 Weight 97.1 kg Sushant Calderon MD 10/28/2019 1:17 PM Signed Patient presents with: Urinary Frequency Abdominal Pain HPI: Symptoms since last night. Dysuria: No Frequency: Yes Hematuria: No Nausea: nausea last night Fever or chills: No Back pain: No Abdominal pain: lower cramping Prior UTI: Yes Personal history of kidney stones: No Family history of kidney stones: Mother Almost 29 weeks pregant. MEDICATIONS: Current Outpatient Medications Medication Sig - levothyroxine (LEVOXYL) 50 mcg tablet Take 1 tablet by woody th once daily. - Fswxqtat-Or-Gfd-F e-FA ( VITAMIN) tab Take 1 tablet by mouth. No current facility-administered medications for this visit. ALLERGIES: ALLERGIES No Known Allergies VITALS: BP 100/66 Pulse 92 Temp 37 ?C (98.6 ?F) (Tympanic) Res p 20 Wt 97.1 kg (214 lb) LMP 05/01/2019 BMI 34.54 kg/m? PHYSICAL EXAM: GEN: NAD HEENT: EOMI, conjunctiva clear, moist mucous membranes HEART: regular rate and rhythm, no murmurs LUNGS: clear to auscultation, no wheezes or crackles, no inc reased WOB ABDOMEN: Gravid, Soft, left and right lower pelvic tendernes s BACK: No CVA tenderness ASSESSMENT/PLAN: 1. Urinary frequency - ICD9: 788.41, ICD10: R35.0 (primary d iagnosis) 2. Lower abdominal pain - ICD9: 789.09, ICD10: R10.30 - UA DIP, URINE (POC) - negative, normal F/u in the ER with bloody discharge, fluid leaking, or worse keon cramps. Sushant Calderon MD Referring Provider: SELF [[id number]] Allergies As of Date: 10/28/2019 (No Known Allergies) Date Reviewed: 10/28/2019 Reviewed by: Nhi Avelar LPN - Fully Assessed Reason for Visit: Urinary Frequency [1086] Abdominal Pain [1] Primary Visit Diagnosis:Urinary frequency [R35.0] Other Visit Diagnosis:Lower abdominal pain [R10.30] Order(s):UA DIP, URINE (POC) [[id number]] Order #: [id number] . #:[id number] Prescriptions as of 10/28/2019 Sig: LEVOTHYROXINE 50 MCG TABLET Take 1 tablet by mouth once d* VITAMIN TABLET Take 1 tablet by mouth. Problem List As Of Date 10/28/2019 Noted Resolved Herpes simplex [B00.9] More... [Z34.81] 08/12/2016 Hypothyroidism [E03.9] 09/05/2016 Hematuria [R31.9] 09/05/2016 More... Late care affecting in first*09/21/2019 More... History of hypothyroidism [Z86.39] 09/21/2019 More... History of depression [Z87.59, Z86.5*09/21/2019 More... History of precipitous delivery [Z87.59] 10/20/2019 Obesity in , antepartum [O99.210] 10/20/2019 More... Abnormal glucose in , antepartum [O99.*10/22/2019 More... Encounter Status:Closed by SUSHANT CALDERON MD on 10/28/19 progress on 2019-10 PROGRESS HNO ID: [id number] Normal 10-24-2019 [facility] Author: Sushant Rush ([id number]) Service: ? Author Type: Physician Type: Progress Notes Filed: 10/24/2019 3:38 PM Note Text: Reason for Consultation: hypothyroidism complicating pregnan cy. Referring Physician: Kaylyn Fabian APRN.CNM [address] [facility] [address] My final recommendations will be communicated back to the re questing physician by way of shared Medical record or letter via [facility]. HISTORY OF PRESENT ILLNESS; Ms. Salguero is a 29 year old F at 28 weeks gestation pres enting as a new patient to me, follow up to our department regarding hyp othyroidism complicating . She has seen Dr Martinez previously- not since 05/2018. She was initially diagnosed with a thyroid disorder during in 2017. She has been taking levothyroxine 75 mcg/ day since 2017 (stopped taking this a few months ago- lost insurance, etc). Most recent blood work as below. Severity, modifying factors, con text and associated signs and symptoms are as follows: ? Thyroid pain: no ? Mass effect: None ? Energy: stable and OK ? Sleep: Restless ? Temperature Intolerance: not significant ? [employer] ADMINISTRATIVE LAW JUDGE: gravid at 28 weeks gestation. ? GI: denies loose stools, frequent stools or constipation ? Weight: increased, appropriate for . ? Eyes: Normal ? Memory: Good ? Diaphoresis: Not significant ? Skin: no issues. ? Neuro: negative, no headache or tremor ? Radiological imaging with contrast dyes within the last 3 months? no ? History of radiation exposure to head or neck area? no Also of note - she has an abnormal 1 hour GTT- not yet taken 3 hour GTT. Last visit with OB was 10/20- last U/S was 10/05- EFW 42nd, AC 72nd , TAMI NL - not finding out gender. PAST MEDICAL HISTORY Diagnosis Date - Chlamydia - Eczema mild - Herpes simplex right cheek - Hypothyroidism 09/05/2016 - depression PAST SURGICAL HISTORY Procedure Laterality Date - CHOLECYSTECTOMY 05/13/2017 FAMILY HISTORY Problem Relation Age of Onset - Hypertension Mother - Eczema Mother - other (sleep apnea) Father - Eczema Sister - Eczema Maternal Grandmother - Diabetes Maternal Grandmother - No Known Problems Maternal Grandfather - No Known Problems Paternal Grandmother - Coronary Artery Disease Paternal Grandfather - No Known Problems Sister - Diabetes Maternal Aunt - No Known Problems Daughter - Asthma Son Social History Tobacco Use - Smoking status: Never Smoker - Smokeless tobacco: Never Used Substance Use Topics - Alcohol use: No - Drug use: No Current Outpatient Medications Medication Sig Dispense Refill - Beflwmji-Ty-Sfi-Fe-FA ( VITAMIN) tab Take 1 tablet by mouth. - levothyroxine (SYNTHROID) 75 mcg tablet Take 1 tablet by m outh once daily. (Patient not taking: Reported on 09/21/2019 ) 30 tablet 11 No current facility-administered medications for this visit. Allergies As of Date: 10/24/2019 (No Known Allergies) Fully Assessed 10/20/2019 REVIEW OF SYSTEMS: General: no fever and no chills Cardiovascular: denies chest pain, heart palpitations or ort hopnea Resp: denies wheezing, productive cough or exertional dyspne a PHYSICAL EXAM: BP 108/62 Pulse 85 Ht 167.6 cm (5' 6) Wt 98.4 kg (217 lb) LMP 05/01/2019 BMI 35.02 kg/m? GENERAL: Alert, no distress, cooperative SKIN: Skin color, texture, turgor normal. No rashes or lesio ns. HEAD/SINUSES: No significant findings EYES: sclera non-icteric, no lid lag or stare. LUNGS: Lungs clear to auscultation, Good diaphragmatic excur van CARDIAC: Normal S1 and S2; no rubs, murmurs, or gallops ABDOMEN: gravid at 28 weeks. EXTREMITIES: Normal exam of the extremities NEURO: AAO x 3, no focal deficit.s The remainder of the physical exam is noncontributory. DATA: Component Latest Ref Rng AND Units 10/06/2016 11/17/2016201604/12/2018 09/22/2019 T4 5.5 - 10.2 ug/dL 7.7 T4 Uptake 0.91 - 1.19 1.39 (H) FTI 6.0 - 11.0 ug/dL 5.5 (L) TSH 0.270 - 4.200 uU/mL 2.080 2.220 3.400 5.780 (H) 3.890 Free T4 0.9 - 1.7 ng/dL 0.9 1.0 0.8 (L) Free T3 2.3 - 4.1 pg/mL 2.6 T3 79 - 165 ng/dL 189 (H) Microsomal Antibody Date Value Ref Range Status 11/17/2016 <1.0 <5.6 IU/mL Final RADIOLOGY: US Thyroid was not done. ASSESSMENT: Ms. Salguero is a 29 year old F at 28 weeks gestation here regarding hypothyroidsim complicating . RECOMMENDATIONS: Untreated hypothyroidism in can be associated with adverse outcomes of mother and offspring such as neurological impair ment in the developing fetus, delivery/low weight, gestati onal hypertension, preeclampsia, post hemorrhage, and plac ental abruption. TSH greater than 2.5 and antibody positivity has been associated with early miscarriage as well, even with normal free hormone levels. Subclinical hypothyroidism has been associated these adverse sequelae, however less frequently than with overt hypothyroi dism. Also, treatment with T4 has been proven to reduce the risks of adv erse obstetrical outcomes, and is therefore recommended by endocr ine society. I advised her as follows: 1) restart levothyroxine 50 mcg/day. rx sent to her pharmacy . 2) get blood work in 4 weeks- I will report these results to you when available. 3) send me a [employer] message with your glucose tolerance mavis t results 4) follow up with me february 18 (post f/u) with blood wo rk prior (sooner as indicated) I spent 25 minutes in this visit, with more than 50% of the time devoted to patient counseling. DO kenya Streeterov on 2019-10-24 CNOV Office Visit (ENDOAL) Normal 10-24-[address] [place] [address] [facility] NOEMYPAGE ([id number]) 1990 [address] [place] Date Time Provider Department ([id number]) 10/24/19 2:40 PM SUSHANT STOKES During your visit today, we recorded the following informati on about you: Pulse Blood pressure Weight Height 85/minute 108/62 98.4 kg 1.676 m Sushant Stokes DO 10/24/2019 3:38 PM Signed Reason for Consultation: hypothyroidism complicating pregnan cy. Referring Physician: Kaylyn Fabian APRN.CNM [address] [facility] [address] My final recommendations will be communi cated back to the requesting physician by way of shared Medical record or letter via US mail. HISTORY OF PRESENT ILLNESS; Ms. Salguero is a 29 year old F at 28 weeks gestation pr esenting as a new patient to me, follow up to our department regarding hypothy roidism complicating . She has seen Dr Maritnez previously- n ot since 05/2018. She was initially diagnosed with a thyroid disor christi during in 2016. She has been taking levothyroxine 75 mcg /day since 2017 (stopped taking this a few months ago- lost insurance, etc). Most recent blood work as below. Severity, modifying factors, context and associa bessie signs and symptoms are as follows: ? Thyroid pain: no ? Mass effect: None ? Energy: stable and OK ? Sleep: Restless ? Temperature Intolerance: not significant ? US ADMINISTRATIVE LAW JUDGE: gravid at 28 weeks gestation. ? GI: denies loose stools, frequent stools or constipation ? Weight: increased, appropriate for . ? Eyes: Normal ? Memory: Good ? Diaphoresis: Not significant ? Skin: no issues. ? Neuro: negative, no headache or tremor ? Radiological imaging with contrast dyes within the last 3 months? no ? History of radiation exposure to head or neck area? no Also of note - she has an abnormal 1 hour GTT- not yet taken 3 hour GTT. Last visit with OB was 10/20- last U/S was 10/05- EFW [address], AC [address] , TAMI NL - not finding out gender. PAST MEDICAL HISTORY Diagnosis Date - Chlamydia - Eczema mild - Herpes simplex right cheek - Hypothyroidism 09/05/2016 - depression PAST SURGICAL HISTORY Procedure Laterality Date - CHOLECYSTECTOMY 05/13/2017 FAMILY HISTORY Problem Relation Age of Onset - Hypertension Mother - Eczema Mother - other (sleep apnea) Father - Eczema Sister - Eczema Maternal Grandmother - Diabetes Maternal Grandmother - No Known Problems Maternal Grandfather - No Known Problems Paternal Grandmother - Coronary Artery Disease Paternal Grandfather - No Known Problems Sister - Diabetes Maternal Aunt - No Known Problems Daughter - Asthma Son Social History Tobacco Use - Smoking status: Never Smoker - Smokeless tobacco: Never Used Substance Use Topics - Alcohol use: No - Drug use: No Current Outpatient Medications Medication Sig Dispense Refill - Zlllncvn-En-Krn-F e-FA ( VITAMIN) tab Take 1 tablet by mouth. - levothyroxine (SYNTHROID) 75 mcg tablet Take 1 table t by mouth once daily. (Patient not taking: Reported on 09/21/2019 ) 30 tablet 11 No current facility-administered medications for this visit. Allergies As of Date: 10/24/2019 (No Known Allergies) Fully Assessed 10/20/2019 REVIEW OF SYSTEMS: General: no fever and no chills Cardiovascular: denies chest pain, heart palpitations or ort hopnea Resp: denies wheezing, productive cough or exertional dyspne a PHYSICAL EXAM: BP 108/62 Pulse 85 Ht 167.6 cm (5' 6) Wt 98.4 kg (217 lb) LMP 05/01/2019 BMI 35.02 kg/m? GENERAL: Alert, no distress, cooperative SKIN: Skin color, texture, turgor normal. No rashes or lesio ns. HEAD/SINUSES: No significant findings EYES: sclera non-icteric, no lid lag or stare. LUNGS: Lungs clear to auscultation, Good diaphragmatic excur van CARDIAC: Normal S1 and S2; no rubs, murmurs, or gallops ABDOMEN: gravid at 28 weeks. EXTREMITIES: Normal exam of the extremities NEURO: AAO x 3, no focal deficit.s The remainder of the physical exam is noncontributory. DATA: Component Latest Ref Rng AND Units 10/06/2016 11/17/2016201604/12/2018 09/22/2019 T4 5.5 - 10.2 ug/dL 7.7 T4 Uptake 0.91 - 1.19 1.39 (H) FTI 6.0 - 11.0 ug/dL 5.5 (L) TSH 0.270 - 4.200 uU/mL 2.080 2.220 3.400 5.780 (H) 3.890 Free T4 0.9 - 1.7 ng/dL 0.9 1.0 0.8 (L) Free T3 2.3 - 4.1 pg/mL 2.6 T3 79 - 165 ng/dL 189 (H) Microsomal Antibody Date Value Ref Range Status 11/17/2016 <1.0 <5.6 IU/mL Final RADIOLOGY: US Thyroid was not done. ASSESSMENT: Ms. Noemy is a 29 year old F at 28 weeks gestation here regarding hypothyroidsim complicating . RECOMMENDATIONS: Untreated hypothyroidism in can be ass ociated with adverse outcomes of mother and offspring such as neurological impairment in t he developing fetus, delivery/low weight, gestational hypert ension, preeclampsia, post he morrhage, and placental abruption. TSH greater than 2.5 and antibody positivity has been associated with early miscarriage as well, even with normal free hormone levels. Subclinical hypothyroi dism has been associated these adverse sequelae, however less frequently t payne with overt hypothyroidism. Also, treatment with T4 has been proven to reduce the risks of adverse obstetrical outcomes, and is therefore recommended b y endocrine society. I advised her as follows: 1) restart levothyroxine 50 mcg/day. rx sent to her pharmacy . 2) get blood work in 4 weeks - I will report these results to you when available. 3) send me a [employer] message with your glucose tolerance mavis t results 4) follow up with ct february 18 (post f/u) with blood work prior (sooner as indicated) I spent 25 minutes in this visit, with more than 50% of e time devoted to patient counseling. DO Sushant Streeter DO 10/24/2019 3:10 PM Signed 1) restart levothyroxine 50 mcg/day 2) get blood work in 4 weeks - I will report these results to you when available. 3) send me a [employer] message with your glucose tolerance mavis t results 4) follow up with ct february 18 (post f/u) with blood work prior (sooner as indicated) Referring Provider: KAYLYN FABIAN ([facility]) [[id number]] Allergies As of Date: 10/24/2019 (No Known Allergies) Date Reviewed: 10/24/2019 Reviewed by: Sushant Stokes - Fully Assessed Reason for Visit: New Patient [172] Primary Visit Diagnosis:History of hypothyroidism [Z86.39] Other Visit Diagnosis:Thyroid dysfunction in in th ird trimester [O99.283, E07.9] Order(s):TSH BLD [SQTSH] Order #: [id number] FUTURE T4/THYROXINE BLOOD [SQT4] Order #: [id number] FUTURE levothyroxine (LEVOXYL) 50 mcg tabletTake 1 tablet by mouth once daily.Disp: 30 tabletRfl: 11 Prescriptions as of 10/24/2019 Sig: LEVOTHYROXINE 50 MCG TABLET Take 1 tablet by mouth once d* VITAMIN TABLET Take 1 tablet by mouth. Problem List As Of Date 10/24/2019 Noted Resolved Herpes simplex [B00.9] More... [Z34.81] 08/12/2016 Hypothyroidism [E03.9] 09/05/2016 Hematuria [R31.9] 09/05/2016 More... Late care affecting in first*09/21/2019 More... History of hypothyroidism [Z86.39] 09/21/2019 More... History of depression [Z87.59, Z86.5*09/21/2019 More... History of precipitous delivery [Z87.59] 10/20/2019 Obesity in , antepartum [O99.210] 10/20/2019 More... Abnormal glucose in , antepartum [O99.*10/22/2019 More... Other instructions from your clinician: 1) restart levothyroxine 50 mcg/day 2) get blood work in 4 weeks- I will report these results to you when available. 3) send me a [employer] message with your glucose tolerance mavis t results 4) follow up with me february 18 (post f/u) with blood wo rk prior (sooner as indicated) Prescriptions ordered this encounter Disp Refills Start End LEVOTHYROXINE 50 MCG TABLET 30 t* 11 10/24/2019 Route: ORAL Sig: Take 1 tablet by mouth once daily. Medications Discontinued During This Encounter levothyroxine (SYNTHROID) 75 mcg tab* 30 t* 11 06/20/201810/24/2019 Route: ORAL Sig: Take 1 tablet by mouth once daily. Patient not taking: Reported on 09/21/2019 Disc: Reason for discontinue is not on file. Follow-up and Disposition History Recorded Encounter Status:Closed by SUSHANT STOKES DO on 10/24/19 100g, 3hr gest. ogtt on 2019-10-24 Glucose [Mass/Vol] 154 74-179 mg/dL Normal 10-24-2019 [facility] ([id number]) Comment: Result Comment: [place] Con to[employer] of Obstetricians and Gynecologists (Raman/Ervin) guidelin es state gestational diabetes mellitus is present when 2 or more of th e plasma glucose concentrations meet or exceed the following levels: fastin mg/dl, 1 hr: 180 mg/dl, 2 hr: 155 mg/dl, and 3 hr: 140 mg/dl. Performed By: #### GTGST3 ## ##[facility], [place] [phone]- [phone] Glucose [Mass/Vol] 115 74-139 mg/dL Normal 10-24-2019 [facility] ([id number]) Comment: Result Comment: [place] Con tobias of Obstetricians and Gynecologists (Raman/Ervin) guidelin es state gestational diabetes mellitus is present when 2 or more of th e plasma glucose concentrations meet or exceed the following levels: fastin mg/dl, 1 hr: 180 mg/dl, 2 hr: 155 mg/dl, and 3 hr: 140 mg/dl. Performed By: #### GTGST3 ## ##[facility] [place], [place] [phone] Glucose [Mass/Vol] 73 74-94 mg/dL Low 10-24-2019 [facility] ([id number]) Comment: Result Comment: [place] Con to[employer] of Obstetricians and Gynecologists (Raman/Ervin) guidelin es state gestational diabetes mellitus is present when 2 or more of th e plasma glucose concentrations meet or exceed the following levels: fastin mg/dl, 1 hr: 180 mg/dl, 2 hr: 155 mg/dl, and 3 hr: 140 mg/dl. Performed By: #### GTGST3 ## ##[facility], [place] [phone]- [phone] Glucose [Mass/Vol] 139 74-154 mg/dL Normal 10-24-2019 [facility] ([id number]) Comment: Result Comment: [place] Con tobias of Obstetricians and Gynecologists (Raman/Ervin) guidelin es state gestational diabetes mellitus is present when 2 or more of th e plasma glucose concentrations meet or exceed the following levels: fastin mg/dl, 1 hr: 180 mg/dl, 2 hr: 155 mg/dl, and 3 hr: 140 mg/dl. Performed By: #### GTGST3 ## ##[place] [address], [place] [phone] cbc and differential on 2019-10-20 Abs Baso <0.03 <0.11 Normal 10-20-2019 [facility] ([id number]) Comment: Performed By: #### CBCDIF ## ##[place] [address] [place] [phone]- [phone] Abs [place] 0.49 <0.87 k/uL Normal 10-20-2019 [facility] ([id number]) Comment: Performed By: #### CBCDIF ## ##[place] [address] [place] [phone]- [phone] Abs Neut 7.11 1.45-7.50 k/uL Normal 10-20-2019 [facility] ([id number]) Comment: Performed By: #### CBCDIF ## ##[place] [address] [place] [phone]- [phone] Absolute nRBC <0.01 <0.01 Normal 10-20-2019 [facility] ([id number]) Comment: Performed By: #### CBCDIF ## ##[place] [address], [place] [phone]- [phone] Basophils/100 WBC (Bld) 0.2 % Normal 2019 [facility] (27837) Comment: Performed By: #### CBCDIF ## ##[place] [address] [place] [phone]- [phone] DTYPE Auto Diff Normal 10-20-2019 [facility] (41350) Comment: Performed By: #### CBCDIF ## ##[place] [address], [place] [phone]- [phone] Eosinophils (Bld) [#/Vol] 0.03 <0.46 k/uL Normal 09-24 [facility] (38189) Comment: Performed By: #### CBCDIF ## ##[place] [address], [place] [phone]- [phone] Eosinophils/100 WBC (Bld) 0.3 % Normal 09-24 [facility] (07514) Comment: Performed By: #### CBCDIF ## ##[place] [address] [place], [place] [phone]- [phone] Erythrocyte distribution 12.6 11.5-15.0 % Normal 10-20 [facility] width (RBC) [Ratio] [place] ([id number]) Comment: Performed By: #### CBCDIF ## ##[place] [address], [place] [phone]- [phone] Hematocrit (Bld) [Volume 35.7 36.0-46.0 % Low 10-20 [facility] fraction] ([id number]) Comment: Performed By: #### CBCDIF ## ##[place] [address], [place] [phone]- [phone] Hemoglobin (Bld) 11.4 11.5-15.5 g/dL Low 10-20-2019 [facility] [Mass/Vol] [place] (50364) Comment: Performed By: #### CBCDIF ## ##[place] [address], [place] [phone]- [phone] Lymphocytes (Bld) [#/Vol] 2.02 1.00-4.00 k/uL Normal 09-24 [facility] (62927) Comment: Performed By: #### CBCDIF ## ##[place] [address] [place], [place] [phone]- [phone] Lymphocytes/100 WBC (Bld) 20.9 % Normal 09-24 [facility] (07635) Comment: Performed By: #### CBCDIF ## ##[place] [address], [place] [phone]- [phone] MCH (RBC) [Entitic mass] 28.5 26.0-34.0 pG Normal 10-20 [facility] (08884) Comment: Performed By: #### CBCDIF ## ##[address] [phone]- [phone] MCHC (RBC) [Mass/Vol] 31.9 30.5-36.0 g/dL Normal 10-20-19 20 [facility] (47787) Comment: Performed By: #### CBCDIF ## ##[address], [place] [phone]- [phone] MCV (RBC) [Entitic vol] 89.3 80.0-100.0 fL Normal 10-20 [facility] (55003) Comment: Performed By: #### CBCDIF ## ##[address] [phone]- [phone] Monocytes/100 WBC (Bld) 5.1 % Normal 2019 [facility] (54474) Comment: Performed By: #### CBCDIF ## ##[address] [phone]- [phone] Neutrophils/100 WBC (Bld) 73.5 % Normal 09-24 [facility] (48449) Comment: Performed By: #### CBCDIF ## ##[address] [phone] NRBCs 0.0 0 /100 WBC Normal 10-20-2019 [facility] (86172) Comment: Performed By: #### CBCDIF ## ##[address] [phone]- [phone] Platelet mean volume 11.7 9.0-12.7 fL Normal 0 [facility] (Bld) [Entitic vol] [place] (65950) Comment: Performed By: #### CBCDIF ## ##[facility] [place], [place] [phone] Platelets (Bld) [#/Vol] 192 150-400 k/uL Normal 2019 [facility] (14201) Comment: Performed By: #### CBCDIF ## ##[facility] [place] [address] [phone] RBC (Bld) [#/Vol] 4.00 3.90-5.20 m/uL Normal 10-20-2019 [facility] (06503) Comment: Performed By: #### CBCDIF ## ##[place] [address] [place], [place] [phone]- [phone] WBC (Bld) [#/Vol] 9.67 3.70-11.00 k/uL Normal 10-20-2019 [facility] (91491) Comment: Performed By: #### CBCDIF ## ##[facility] [place], [place] [phone] 50g, 1hr gest. gscrn on 2019-10-20 Glucose [Mass/Vol] 141 74-134 mg/dL High 10-20-2019 [facility] (95444) Comment: Result Comment: [facility] and Gynecologists (Raman/Ervin) [facility] es state a gestational diabetes mellitus positive screen is made, in women not previously diagnosed with overt diabetes, when the 1 hr plas ma glucose level is equal to or above 140 mg/dL. The [facility] Plate Glass Polisher and [facility] [place] recommends a 135 mg/dL cutoff. Performed By: #### GLTGST ## ##[facility] [place], [place] [phone]- [phone] progress on 2019-09 PROGRESS HNO ID: [id number] Normal 10-05-2019 [facility] Author: Kenny Peña ([id number]) Service: ? Author Type: Physician Type: Progress Notes Filed: 10/05/2019 1:10 PM Note Text: Please see ultrasound report for details of this visit. Kenny Peña M.D. cnco on 2019-09-27 CNCO Letter Text Normal 09-27-2019 [facility] ([id number]) urine culture on 11-09-30 Bacteria identified Sp. Request/Comment: - Specimen received in pre servative Normal 09-22-2019 [facility] Cx Nom (U) [place] ([id number]) Culture Result - 10,000 - <50,000 CFU/ml Normal urogenital f erin Comment: Performed By: #### URCUL ### #[facility] [address] [place], [place] [phone]- [phone] type and scr,prenatl on 2019-09-22 ABO/RH(D) A POSITIVE Normal 09-22-2019 [facility] (07473) Comment: Performed By: #### TSPN #### [facility] [address] [place], [place] [phone] tsh on 2019-09-22 TSH Qn 3.890 0.270-4.200 uU/mL Normal 09-22-2019 [facility] (12768) Comment: Result Comment: If the patie nt is , TSH reference range varies by gestational period: First Trimester (weeks 9-12) : 0.180-2.990 mcIU/mL Second Trimester: 0.110-3.98 0 mcIU/mL Third Trimester: 0.480-4.710 mcIU/mL Asad Dela Cruz, et al. A Practica l Approach for the Verifications and Determination of Site- and Trimester-Specific Reference Intervals for Thyroid Function tests in . Thyroid, 2019:29:3:412-420. Al cinthia Sanz, et al. 2017 Guide lines of the [place] Thy[employer] for the Diagnosis and Management of Thyroid Disease during and the . Thyroid, 2017:27:3:315-389. Performed By: #### SYPHTX, R UBIGG, HIV12C, AHCV1B, HBSAG, TSH, T4FTI, T3, CBC #### [facility] [address] [place], [place] [id number] toxicology screen,ur on 2019-09-22 Amphetamines, Urine Negative Negative Normal 09-22-2019 [facility] ([id number]) Comment: Result Comment: Cutoff thres hold at 1000 ng/mL. Performed By: #### UTOX2 ### #[place] [address] [place] [phone]- [phone] Barbiturates, Urine Negative Negative Normal 09-22-2019 [facility] (92090) Comment: Result Comment: Cutoff thres hold at 200 ng/mL. Performed By: #### UTOX2 ### #[place] [address] [place] [phone]- [phone] Benzodiazepines, Ur Negative Negative Normal 09-22-2019 [facility] (62376) Comment: Result Comment: Cutoff thres hold at 200 ng/mL. Performed By: #### UTOX2 ### #[place] [address] [place] [phone]- [phone] Cannabinoids, Urine Negative Negative Normal 09-22-2019 [facility] (50241) Comment: Result Comment: Cutoff thres hold at 50 ng/mL. Performed By: #### UTOX2 ### #[place] [address] [place] [phone]- [phone] Cocaine, Urine Negative Negative Normal 09-22-2019 [facility] (51505) Comment: Result Comment: Cutoff thres hold at 300 ng/mL. Performed By: #### UTOX2 ### #[place] [address], [place] [phone]- [phone] Ethanol, Urine <11 <11 Normal 09-22-2019 [facility] (83211) Comment: Performed By: #### UTOX2 ### #[place] [address] [place] [phone]- [phone] Opiates, Urine Negative Negative Normal 09-22-2019 [facility] (43118) Comment: Result Comment: Cutoff thres hold at 300 ng/mL. Performed By: #### UTOX2 ### #[place] [address] [place], [place] [phone] Oxycodone, Urine Negative Negative Normal 09-22-2019 [facility] (70480) Comment: Result Comment: Cutoff thres hold at 100 ng/mL. Comment: Immunoassay screen only. Shipping Order Clerk ss reactivity with other substances can occur with immunoassay screening. Detection of any drug(s) in this urine toxicology panel is presumptive only. These tests are for med ical purposes only and shoul d not be used for compliance monitoring, legal, or forensic use. Samples should be within nor mal physiological conditions (e.g. pH). This assay does not include adulteration/specimen validity testing. In clinical settings, confir matory testing is at the practitioner's discretion [1]. If clinically indicated, confirmation by high specificity, quantitative methodology, which includes adulteration/speci men validity testing, may be requested on the same specimen through Client Services ([phone]) if contacted within 48 hours of initial testing. [1]Substance Abuse and [facility] (2012). Clinical Drug Testing in Primary Care Technical Assistance Publication Series 32. Department of Health and Human Services, [place], p.10. Performed By: #### UTOX2 ### #[facility] [place], [place] [phone]- [phone] Phencyclidine, Urine Negative Negative Normal 0 [facility] (43223) Comment: Result Comment: Cutoff thres hold at 25 ng/mL. Performed By: #### UTOX2 ### #[facility] [address] [place], [place] [phone]- [phone] t4/fti on 2019-08-25 1 FTI 5.5 6.0-11.0 ug/dL Low 09-22-2019 [facility] ([id number]) Comment: Result Comment: Notified John moran in Dr. Cook's Office, 09/25/2019 13:14 Zach Corrected on 09/25 AT 1317: Previously reported as 6.8 Performed By: #### SYPHTX, R UBIGG, HIV12C, AHCV1B, HBSAG, TSH, T4FTI, T3, CBC #### [facility] s [address] [place], [place] [address] T4 [Mass/Vol] 7.7 5.5-10.2 ug/dL Normal 09-22-2019 [facility] (47436) Comment: Result Comment: Notified John moran in Dr. Cook's Office, 09/25/2019 13:14 [place] Corrected on 09/25 AT 1317: Previously reported as 9.4 Performed By: #### SYPHTX, R UBIGG, HIV12C, AHCV1B, HBSAG, TSH, T4FTI, T3, CBC #### [address] [address] T4 Uptake 1.39 0.91-1.19 High 09-22-2019 [facility] (49737) Comment: Performed By: #### SYPHTX, R UBIGG, HIV12C, AHCV1B, HBSAG, TSH, T4FTI, T3, CBC #### [address] [address] t3 on 2019-09-22 T3 189 79-165 ng/dL High 09-22-2019 [facility] (95427) Comment: Performed By: #### SYPHTX, R UBIGG, HIV12C, AHCV1B, HBSAG, TSH, T4FTI, T3, CBC #### [address] [address] syphilis ttl w/reflx on 2019-09-22 Syphilis Interp Cannot exclude recent Normal [facility] Treponemal infection if [place] (10743) specimen collected within 7 to 10 days after appearance of suspect lesions or 2 to 3 weeks after an exposure. Clinical correlation is required. Comment: Performed By: #### SYPHTX, R UBIGG, HIV12C, AHCV1B, HBSAG, TSH, T4FTI, T3, CBC #### [address] [address] Syphilis Screen Non Reactive Non Reactive Normal 09-22-19 20 [facility] (53083) Comment: Performed By: #### SYPHTX, R UBIGG, HIV12C, AHCV1B, HBSAG, TSH, T4FTI, T3, CBC #### [facility] [address] [place], [place] [address] rubella igg antibody on 2019-09-22 Rubella IgG Ab 3.58 Index Value Normal 09-22-2019 [facility] (85406) Comment: Result Comment: Index values are interpreted as follows: Negative specimens <0.90 Equivocol specimens 0.90 to 0.99 Positive specimens >0.99 The magnitude of the measure d result is not indicative of the amount of antibody present. Performed By: #### SYPHTX, R UBIGG, HIV12C, AHCV1B, HBSAG, TSH, T4FTI, T3, CBC ####[facility] [address] [place], [place] [phone] Rubella IgG Ab, Positive Negative Critically abnormal 08-25 [facility] Qual [place] ([id number]) Comment: Result Comment: Sample is co nsidered positive for IgG antibodies to rubella virus. A positive result indicates previous exposure to Rubella virus or vaccination. Performed By: #### SYPHTX, R UBIGG, HIV12C, AHCV1B, HBSAG, TSH, T4FTI, T3, CBC ####[facility] [address] [place], [place] [phone] progress on 2019-08 PROGRESS HNO ID: [id number] Normal 09-22-2019 [facility] Author: Shellie Forman [place] ([id number]) Service: ? Author Type: Physician Type: Progress Notes Filed: 09/22/2019 1:34 PM Note Text: INITIAL OB ASSESSMENT OB Provider: Shellie Forman MD HPI: Page Salguero is a 29 year old female here to [facility]. Patient's last menstrual period was 05/01/2019. from [place] Dating Form. Cycle length: 28-30 days Complaints: None was planned. Obstetric History T2 L2 SAB0 TAB0 Ectopic0 Multiple0 Live Births2 Prior : never History of 4th degree laceration: No Patient's Risk Screening for delivery: History of abnormal pap: No Prior treatment for cervical dysplasia: none. History of STDs: chlamydia- treated remotely Tobacco use: No Caffeine use: No Drug use: No Alcohol use: No Multivitamin with Folic acid: Yes Occupation: [employer] Scientologist or heritage: No Would refuse blood transfusion if medically necessary: No No weight on file for this encounter. Patient BMI over 30? N o Marital Status: Partner: Name: Sergey Age: 30 Occupation: [employer] Gender: male History of STDs: chlamydia PAST MEDICAL HISTORY Diagnosis Date - Chlamydia - Eczema mild - Herpes simplex right cheek - Hypothyroidism 09/05/2016 - depression PAST SURGICAL HISTORY Procedure Laterality Date - CHOLECYSTECTOMY 05/13/2017 Current Outpatient Medications on File Prior to Visit Medication Sig - Vzmvnpdw-Pn-Dyz-Fe-FA ( VITAMIN) tab Take 1 tablet by mouth. - norgestimate 0.25 mg-ethinyl estradiol 35 mcg (SPRINTEC) 0 .25-35 mg-mcg per tablet Take 1 tablet by mouth once daily. (Patient not t aking: Reported on 09/21/2019 ) - Norethindrn A-E Estradiol-Iron 1 mg-20 mcg (24)/75 mg (4) tab Take 1 tablet by mouth once daily. (Patient not taking: Reported on 09/21/2019 ) - levothyroxine (SYNTHROID) 75 mcg tablet Take 1 tablet by m outh once daily. (Patient not taking: Reported on 09/21/2019 ) No current facility-administered medications on file prior t o visit. Review of Systems: GENERAL: Negative for: Fever or Chills HEENT: Negative for: Headache, Impaired Vision, Ringing in E ars, Nosebleeds NECK: Negative for: Swelling, Pain, Stiffness RESPIRATORY: Negative for: Cough, Shortness of breath, Wheez ing GASTROINTESTINAL: Negative for: Heartburn, Diarrhea, Blood i n stool, Vomiting and Positive for: Constipation MUSCULOSKELETAL: Negative for: Muscle or joint pain, stiffne ss, Joint swelling NEUROLOGIC/PSYCHIATRIC: Negative for: Weakness, Paralysis, N umbness, Tingling, Tremor, Anxiety, Depression, Memory loss SKIN: Negative for: Rash, Itching GENITOURINARY: Negative for: vaginal itching, vaginal discha rge, hematuria or dysuria PHYSICAL EXAM: LMP 05/01/2019 GENERAL: pleasant female in no apparent distress DERMATOLOGY: Normal, without lesions, non-icteric and non-hi rsute NECK: Supple, full range of motion, no adenopathy and thyroi d normal CHEST: Normal inspiratory effort BREAST: soft, non-tender, symmetric, no dominant mass, anayeli l nipple-areolar complex, no lymphadenopathy and no nipple dis charge ABDOMEN: soft, non-tender and no masses NEURO: alert and oriented x3,exam grossly non-focal PELVIS: External genitalia normal without lesions. Perineal body intact. No vaginal or cervical lesions. Cervix closed. Uterus 22 wee k size. No adnexal masses or tenderness. Clinical Pelvimetry: Pelvimetry clinically assessed as adequ ate Limited OB ultrasound exam: just done to check FHTs and acti ve single fetus noted ASSESSMENT: 29 year old at 20w4d wks gestational age PLAN: 1) Patient oriented to practice. Discussed nutrition, folic acid supplementation, dietary emil delines, exercise, smoking, alcohol, caffeine, and drug use. Discussed routine OB labs including STD/HIV. Patient declines all aneuploidy screening. CF carrier screening discussed and declined. 2) hypothyroidism, check labs, has endocrine appointment set up but will get labs so we can get her restarted on meds before appt if needed Anatomy US scheduled flu vaccine completed Follow up in 4 weeks or sooner prn.- likely 28 week labs at that visit Shellie Forman MD [id number] ag +[id number] ab on 2019-09-22 HIV 12 Ag/Ab Non Reactive Non Reactive Normal 09-22-2019 [facility] ([id number]) Comment: Performed By: #### SYPHTX, R UBIGG, HIV12C, AHCV1B, HBSAG, TSH, T4FTI, T3, CBC ####[facility] [address] [place], [place] [phone] HIV-1/2 Antibody Normal 09-22-2019 [facility] ([id number]) Comment: Result Comment: Test Not Ind icated Negative No evidence of HIV-1 or HIV- 2 infection. Should recent infection be suspected, repeat testing may be considered 2-3 weeks after this draw. HIV Information: [place] Rev. C ode 3701.243(E): This information has been di sclosed to you from confidential records protected from disclosure by state law. You shall make no further disclosure of this information without the specific, written, and i nformed release of the indiv idual to whom it pertains or as otherwise permitted by state law. A general authorization for the release of medical or other information is not sufficient for the purpose of the release of HIV test results or diagnoses. Performed By: #### SYPHTX, R UBIGG, HIV12C, AHCV1B, HBSAG, TSH, T4FTI, T3, CBC ####[facility] [id number] [place] [phone] hepatitis b surf. ag on 2019-09-22 Hepatitis B Surf. Ag Negative Negative Normal 0 [facility] ([id number]) Comment: Performed By: #### SYPHTX, R UBIGG, HIV12C, AHCV1B, HBSAG, TSH, T4FTI, T3, CBC #### [facility] [address] [place] [address] hep c ab ia w/conf on 2019-09-22 Hepatitis C Ab [place] Negative Negative Normal 09-22-2019 [facility] ([id number]) Comment: Performed By: #### SYPHTX, R UBIGG, HIV12C, AHCV1B, HBSAG, TSH, T4FTI, T3, CBC #### [facility] [address] [place] [address] gc/chlamydia amplif on 2019-09-22 Chlamydia Amplif Negative for Chlamydia Normal 09-22-2019 [facility] trachomatis by Damion cobian ([id number]) amplification. Comment: Performed By: #### GCCT #### [facility] [place] [address] [phone] GC Amplification Negative for Neisseria Normal 09-22-2019 [facility] gonorrhoeae by Damion cobian ([id number]) amplification. Comment: Performed By: #### GCCT #### [facility] [address] [place], [place] [phone] GC/Chlam Amp Source Cervix Normal 09-22-2019 [facility] ([id number]) Comment: Performed By: #### GCCT #### [facility] [place], [place] [phone] cytology on 2019-08 CYTOLOGY Specimen originated from [facility] Normal 09-22-2019 [place] Specimen #: [id number] [facility] Submitting Physician: SHELLIE FORMAN M.D. ([id number]) [place] SPECIMEN SUBMITTED ( [id number]) A: CERVICAL, SCREENING, FLUID FINAL DIAGNOSIS A. CERVICAL, SCREENING, FLUID Satisfactory for interpretation. Negative for intraepithelial lesion or malignancy. This specimen has been analyzed by the ThinPrep Imaging Syst em, an automated imaging and review system, which assists the labor atory in evaluating cells on ThinPrep Pap tests. Following automated imaging, selected reed from every slide are reviewed by a cytotechn ologist. YOSVANY Munoz(ASCP) (Electronic Signature) CLINICAL DATA ROUTINE EXAM, HPV Testing: Yes, Reflex HPV for ASCUS Date of Last Menstrual Period: STAINS A: CERVICAL, SCREENING, FLUID THIN PREP US ADMINISTRATIVE LAW JUDGE Bahman Angulo M.D., Geospatial Systems Integrator Date of Report: 09/27/2019 Date of Procedure: 09/22/2019 Date of Receipt: 09/25/2019 Submitted by: SHELLIE FORMAN M.D. ([id number]) Location: [facility] Diagnostic interpretation performed at [facility], [address] [place] [id number]. [place] Number: [id number] The Pap Smear is a screening test for cervical cancer. False negative results occur with all screening tests, emphasizing the need for rescreening at recommended intervals, and clinical correlati on. cbc on 2019-09-22 Absolute nRBC <0.01 <0.01 Normal 09-22-2019 [facility] ([id number]) Comment: Performed By: #### SYPHTX, R UBIGG, HIV12C, AHCV1B, HBSAG, TSH, T4FTI, T3, CBC #### [facility] [address] [address] Erythrocyte distribution 13.1 11.5-15.0 % Normal 09-22 [facility] width (RBC) [Ratio] [facility] ([id number]) Comment: Performed By: #### SYPHTX, R UBIGG, HIV12C, AHCV1B, HBSAG, TSH, T4FTI, T3, CBC #### [facility] [address] [address] Hematocrit (Bld) [Volume 36.5 36.0-46.0 % Normal 09-22 [facility] fraction] [place] ([id number]) Comment: Performed By: #### SYPHTX, R UBIGG, HIV12C, AHCV1B, HBSAG, TSH, T4FTI, T3, CBC #### [facility] [address] [address] Hemoglobin (Bld) 11.8 11.5-15.5 g/dL Normal 09-22-2019 [facility] [Mass/Vol] [place] ([id number]) Comment: Performed By: #### SYPHTX, R UBIGG, HIV12C, AHCV1B, HBSAG, TSH, T4FTI, T3, CBC #### [facility] [address] [address] MCH (RBC) [Entitic mass] 29.1 26.0-34.0 pG Normal 09-22 [facility] ([id number]) Comment: Performed By: #### SYPHTX, R UBIGG, HIV12C, AHCV1B, HBSAG, TSH, T4FTI, T3, CBC #### [facility] [address] [place], [place] [address] MCHC (RBC) [Mass/Vol] 32.3 30.5-36.0 g/dL Normal 09-22-19 20 [facility] ([id number]) Comment: Performed By: #### SYPHTX, R UBIGG, HIV12C, AHCV1B, HBSAG, TSH, T4FTI, T3, CBC #### [facility] [address] [place], [place] [address] MCV (RBC) [Entitic vol] 89.9 80.0-100.0 fL Normal 09-22 [facility] ([id number]) Comment: Performed By: #### SYPHTX, R UBIGG, HIV12C, AHCV1B, HBSAG, TSH, T4FTI, T3, CBC #### [facility] [address] [place], [place] [address] Platelet mean volume 11.8 9.0-12.7 fL Normal 0 [facility] (Bld) [Entitic vol] [place] ([id number]) Comment: Performed By: #### SYPHTX, R UBIGG, HIV12C, AHCV1B, HBSAG, TSH, T4FTI, T3, CBC #### [facility] [address] [place], [place] [address] Platelets (Bld) [#/Vol] 194 150-400 k/uL Normal 2019 [facility] ([id number]) Comment: Performed By: #### SYPHTX, R UBIGG, HIV12C, AHCV1B, HBSAG, TSH, T4FTI, T3, CBC #### [facility] [address] [place], [place] [address] RBC (Bld) [#/Vol] 4.06 3.90-5.20 m/uL Normal 09-22-2019 [facility] ([id number]) Comment: Performed By: #### SYPHTX, R UBIGG, HIV12C, AHCV1B, HBSAG, TSH, T4FTI, T3, CBC #### [facility] [address] [place], [place] [address] WBC (Bld) [#/Vol] 10.38 3.70-11.00 k/uL Normal 09-22-2019 [facility] ([id number]) Comment: Performed By: #### SYPHTX, R UBIGG, HIV12C, AHCV1B, HBSAG, TSH, T4FTI, T3, CBC #### [facility] [address] [place], [place] [address] progress on 2019-08 PROGRESS HNO ID: [id number] Normal 09-21-2019 [facility] Author: Mundo Penn RN [place] ([id number]) Service: ? Author Type: ? Type: Progress Notes Filed: 09/21/2019 4:49 PM Note Text: # 1 - Date: 12/29/09, Sex: Male, Weight: 7 lb 14 oz (3.572 k g), GA: 37w0d, Delivery: Vaginal, Spontaneous, Apgar1: None, Apgar5: None, Living: Living, Comments: 2 hours of labor total # 2 - Date: 02/21/17, Sex: Female, Weight: 8 lb 12 oz (3.969 kg), GA: 39w1d, Delivery: Vaginal, Spontaneous, Apgar1: 8, Apgar5: 9, Living: Living, Comments: spontaneous labor, 2nd degree lacera tion, EBL 300cc # 3 - Date: None, Sex: None, Weight: None, GA: None, Deliver y: None, Apgar1: None, Apgar5: None, Living: None, Comments: No ne cnnurse on CNNURSE Nurse Visit (WOOB) Normal 09-21-2019 [facility] PAGE SALGUERO ([id number]) 1990 [facility] Time Provider Department ([id number]) 09/21/19 10:30 AM NURSE PNOB [facility] WSTR WOOB During your visit today, we recorded the following informati on about you: Last Period 05/01/19 Mundo Penn RN 09/21/2019 4:49 PM Signed # 1 - Date: [birth year]09, Sex: Male, Weight: 7 lb 14 oz (3.572 k g), GA: 37w0d, Delivery: Vaginal, Spontaneous, Apgar1: None, Apgar5: None , Living: Living, Comments: 2 hours of labor total # 2 - Date: 02/21/17, Sex: Female, Weight: 8 lb 12 oz (3.969 kg), GA: 39w1d, Delivery: Vaginal, Spontaneous, Apgar1: 8, Apgar5: 9, Radha ng: Living, Comments: spontaneous labor, 2nd degree laceration, EBL 300c c # 3 - Date: None, Sex: None, Weight: None, GA: None, D elivery: None, Apgar1: None, Apgar5: None, Living: None, Comments: None Mundo Penn RN 09/21/2019 4:49 PM Signed Patient is 25d7tdl dates. Reports movement x 3 weeks. Has not had care prior to today . States It's my 3rd, and I thought everything was going okay and I had some insurance issues. Discussed with Dr Jean-Baptiste.Anatomy ultrasound ordered. She has a history o hypothyr oidism diagnosed in 2017. Off medication for 6 months because I didn't have a chance to get back in with endocrinology.Discussed importance of t reating hypothyroidism. Discussed with Dr Jean-Baptiste. Patient needs an appointment with Endocrinology. L eft message on recorded line in [place] asking nurse to call patient back to schedule JEN. Meanwhile,our office scheduled patient 0 10/20. Patient has appointment tomorrow and with Dr Forman and will discuss med/labs at that time per Dr Jean-Baptiste. Pt has a history of depression that was never carina bessie after the of her last child . Discussed increased risks of de pression during and and importance of reporting the development or worsening of symptoms should they occur.Pt denies ever having any suicidal thoughts or tendencies or thoughts of hurting others. Patient denies any depression no w, but get's tearful stating she does not like being and she is worried about how she can take care of 3 children. States she has more good da ys than bad regarding feeling sad. Discussed importance of counseling. Yoly cook was agreeable and I made her an appointment at [facility] for 10/12/19 at 12:30 with Ayesha. Histor y of rapid labor with last -2 hours total. Patient declines aneuploidy screening and genetic candelaria ier screening testing. Considering PPTL. CHULA Penn RN 09/21/2019 4:47 PM Signed SEQUENTIAL SCREENINGS The [facility] offers sequential s creenings for women who are interested in screenings for chromosomal abnormalit ies and certain defects during a . The sequential screen combines ultrasound and blo od tests to determine the risk of chromosomal abnormalities, including D own's Syndrome (Trisomy 21) and Trisomy 18, as well as open neural tube def ects including spina bifida. Ultrasound exa mination is performed between 11 weeks and 13 weeks gestational age. Blood tests are drawn a fter the ultrasound and again later in the between 15 and 21 weeks gestational age. Cindy e let your physician know if you are interested in this testing. It jace l require an appointment with our ultraso und cogeneration technician. This is not an ultrasound performed by a physician in our office during a routine visit. SIGNS AND SYMPTOMS OF LABOR 1. Contractions every 10 minutes or more often 2. Clear, pink, or brownish fluid (water) leaking from vagin a 3. Feeling that baby is pushing down, pressure 4. Low, dull backache 5. Cramps that feel like a period 6. Cramps with or without diarrhea If you notice any of the abo ve symptoms, contact our office at [phone] and ask to speak with a nurse. After hours, you can call doctors registry at [phone] O R call [facility] at [phone] and ask to have the doctor various exceptionalities teacher paged. If you consider this an emergency, dial 9-1-1 or go to your nearest emergency department. Cord-Blood Banking Up until recently, the yves bach cord--along with the blood that remained in it after a baby was born and the cord cut--was simp ly discarded by the hospital. Then, in the late , researchers discovered that cord bl ood possessed unusual properties that made it useful in the tr eatment of patients with some cancers and other illnesses. While the a ctual process of collecting cord blood is straightforward, many parents are not even aware that thi s option now exists, much less familiar with all the issues involved. The case for saving your baby's cord blood The blood running back and forth between your baby and the placenta is full of immature cells called stem cells. Unlike embryon ic stem cells, which have the ability to develop into any type of body cell, cord-bl ood stem cells already are locked into a certain, vital functio n: making all the different components of the blood, such as platelets, white blood cells, and red blood cells-serving, in effect, like bone marrow. When transfused into a patient whose own blood cells have faulty genetic coding or have bee n destroyed by chemotherapy or other cancer treatments, the cord-blood cell s can implant themselves in the bone marrow and generate legions of new, h ealthy cells. These days, cord-blood transplants most commonly are u sed in cancer patients when a donor can't be found for a bone-marrow transplant. Th e treatment is particularly effective in young patients-the [facility] Cord Blood Bank reports a 70 percent success rate in childr en, but only 20 to 40 percent in adults. Researchers envision improving those odds and see many future applications as well, such as curing sickle cell disease and other blood-related genetic illnesses. So ther e is a possibility that your child, or someone else, may need these super-healthy and versatile mik ls one day. The drawbacks Aside from not knowing about this medical option , the main reason most people do not save their baby's stem cells is cost. In a private bl ood bank, the initial costs run from $275 to $1,500. Most also charge a yearly storage fee of $50 to $95. The advantage of using a [facility] bank is that your sample is saved for only you to use. An alternative to private banking Public cord-blood vu are an alternative. These cost no money to use, but your sample is not specifically saved for you. Another perso n with a more immediate need may use it. If the time should come berny t you need stem cells, yours may still be available, or you may use donations from other people without charge. You also can direct your sample to go to a relative with an immediate need if the blood type matches. Anyone else needing to use stem cells from a public bank who has not been a do nor must pay for it, sometimes tens of thousands of dollars. Will my family benefit from saving stem cells? Right now, situations in which stem cells would be helpful are quite rare. As mentioned earlier, stem-cell transplants are most commonly u sed for rare genetic conditions and for some types of cancer, including l eukemia and lymphoma. And even with these present uses, many questions remain. In cancer treatment, for example, some researchers are concerned abou t the wisdom of transplanting back into the child the same cells that already showed a propensity to become malignant. Doctors also aren 't sure if the number of cells taken at the time of would be enough to treat a full-grown 16-year-old. It is also not completely clear how active the cells would be after years of being stored. The treatment is so new and rare, we just do n't have the data yet to resolve these important issues. What do the experts say? The [employer] encourages philanth [facility] banking in public vu, but only for families with a current or potent ial need. Blood-bank proponents encour age any kind of banking, pointing out that research is getting closer and closer to many diverse, live-saving ap plications. How do I decide? Each family must weigh the p ros and cons for themselves. Some families say that any cost is worth their peace of mind. Others say that in th e face of uncertainty about the effectiveness of the treatment, they w ill use their resources elsewhere. Some choose the middle ground of donati ng publicly, knowing that their sample might benefit another family, if not themselves. For more information, ask your doctor or nurse, and be sure to c heck out our article on the technical aspects of cord-blood banking. Technical Aspects of Cord-Blood Banking If you are interested in storing your baby's umbilical -cord blood because of its possible use in emerging medical treatments, you must make arrangements with a blood bank before your child is b orn. The collection procedure is quite simple: After delivery of the baby, the umbilica l cord is clamped and cut in the usual way. The blood that remains in the umbil ical-cord vessels is then collected in sterile containers. The blood may be rem shabnam from the cord with a large needle or allowed to flow freely, depending on the company's collection system. The containers may look like large test tubes or like the plastic bags used in a blood bank. It does not cause the mother or the baby a ny pain to collect the blood, and no blood is taken that the baby needs at the [facility]. The nurse, synthetic department supervisor, or physician will then label the samples, check them over with you, and package them for a special pickup arranged wit h a commercial carrier. When the blood arri ves at the blood-bank facility, it is processed and the parents are notified. It is then kept in an advanced s torage system for years. How do I know that my sample is safe? Power outages and bankruptci es potentially could threaten any organization, but so far none have been reported. It is to be hoped that the scientists in these vu would arrange for safe transfer to another [facility] if the need arose. YOU MUST MAKE ARRANGEMENTS AHEAD OF TIME! Public cord-blood vu--DONATION: [employer] [phone] [facility]'s Placental Blood Program, [facility] Umbilical Cord Blood Bank, Private cord-blood vu--SAVING FOR YOUR OWN USE: [employer], (I think this is the least expensive) [employer] [phone] [employer], [phone]) [employer] [place] Cord Blood [facility], [phone] Cells, [phone] [place] [facility], Cord Blood Registry, [phone]) [employer], An Internet search may provide you with additional listings. Referring Provider: SELF [[id number]] Allergies As of Date: 09/21/2019 (No Known Allergies) Date Reviewed: 09/21/2019 Reviewed by: Mundo Penn RN - Fully Assessed Reason for Visit: Care [86] Cmt: Pre-New OB Primary Visit Diagnosis:Late care affecting pregnan cy, antepartum [O09.30] Other Visit Diagnoses:Acquired hypothyroidism [E03.9] Late care affecting in first trimester [O09.31] History of hypothyroidism [Z86.39] History of depression [Z87.59, Z86.59] High risk , antepartum [O09.90] Order(s):OBSTETRIC ULTRASOUND [facility] [[id number]] Order #: [id number]: 1 Prescriptions as of 09/21/2019 Sig: VITAMIN TABLET Take 1 tablet by mouth. NORGESTIMATE 0.25 MG-ETHINYL * Take 1 tablet by mouth once d * Patient not taking: Reported on 09/21/2019 NORETHINDRONE 1 MG-ETHINYL ES* Take 1 tablet by mouth once d * Patient not taking: Reported on 09/21/2019 LEVOTHYROXINE 75 MCG TABLET Take 1 tablet by mouth once d* Patient not taking: Reported on 09/21/2019 Problem List As Of Date 09/21/2019 Noted Resolved Herpes simplex [B00.9] More... [Z34.81] 08/12/2016 Hypothyroidism [E03.9] 09/05/2016 Hematuria [R31.9] 09/05/2016 More... Late care affecting in first*09/21/2019 More... History of hypothyroidism [Z86.39] 09/21/2019 More... History of depression [Z87.59, Z86.5*09/21/2019 More... Other instructions from your clinician: SEQUENTIAL SCREENINGS The [facility] offers sequential screenings for women who are interested in screenings for chromosomal abnormalities and c ertain defects during a . The sequential screen combines u ltrasound and blood tests to determine the risk of chromosomal abnormaliti es, including Down's Syndrome (Trisomy 21) and Trisomy 18, as well as open neural tube defects including spina bifida. Ultrasound examination is pe rformed between 11 weeks and 13 weeks gestational age. Blood tests a re drawn after the ultrasound and again later in the between 15 a nd 21 weeks gestational age. Please let your physician know if you are i nterested in this testing. It will require an appointment with our ultras ound cogeneration technician. This is not an ultrasound performed by a physici an in our office during a routine visit. SIGNS AND SYMPTOMS OF LABOR 1. Contractions every 10 minutes or more often 2. Clear, pink, or brownish fluid (water) leaking from vagin a 3. Feeling that baby is pushing down, pressure 4. Low, dull backache 5. Cramps that feel like a period 6. Cramps with or without diarrhea If you notice any of the above symptoms, contact our office at [phone] and ask to speak with a nurse. After hours, you can call doctors registry at [phone] O R call [facility] at [phone] and ask to have the doctor various exceptionalities teacher paged. If you consider this an emergency, dial or go to your nearest emergency department. Cord-Blood Banking Up until recently, the umbilical cord--along with the blood that remained in it after a baby was born and the cord cut--was simply dis carded by the hospital. Then, in the late , researchers discovered th at cord blood possessed unusual properties that made it useful in the carina tment of patients with some cancers and other illnesses. While the [facility] process of collecting cord blood is straightforward, many parents ar e not even aware that this option now exists, much less familiar with a ll the issues involved. The case for saving your baby's cord blood The blood running back and forth between your baby and the p lacenta is full of immature cells called stem cells. Unlike embryonic s tem cells, which have the ability to develop into any type of body cell , cord-blood stem cells already are locked into a certain, vital function : making all the different components of the blood, such as platelets, wh ite blood cells, and red blood cells-serving, in effect, like bone mar row. When transfused into a patient whose own blood cells have faulty genetic coding or have been destroyed by chemotherapy or other cancer treat ments, the cord-blood cells can implant themselves in the bone marrow a nd generate legions of new, healthy cells. These days, cord-blood transplants most commonly are used in cancer patients when a donor can't be found for a bone-marrow trans plant. The treatment is particularly effective in young patients-the [facility] Cord Blood Bank reports a 70 percent success rate in children, but only 20 to 40 percent in adults. Researchers envision im proving those odds and see many future applications as well, such as sammy g sickle cell disease and other blood-related genetic illnesses. So there is a possibility that your child, or someone else, may need these super-healthy and versatile cells one day. The drawbacks Aside from not knowing about this medical option, the main r elle most people do not save their baby's stem cells is cost. In a [facility] blood bank, the initial costs run from $275 to $1,500. Most also c tuckerge a yearly storage fee of $50 to $95. The advantage of using a private bank is that your sample is saved for only you to use. An alternative to private banking Public cord-blood vu are an alternative. These cost no mo shantal to use, but your sample is not specifically saved for you. Another p erson with a more immediate need may use it. If the time should come that you need stem cells, yours may still be available, or you may use donation s from other people without charge. You also can direct your sample to go to a relative with an immediate need if the blood type matches. Anyone els e needing to use stem cells from a public bank who has not been a donor m ust pay for it, sometimes tens of thousands of dollars. Will my family benefit from saving stem cells? Right now, situations in which stem cells would be helpful a re quite rare. As mentioned earlier, stem-cell transplants are most commonl y used for rare genetic conditions and for some types of cancer, includ ing leukemia and lymphoma. And even with these present uses, many questions remain. In cancer treatment, for example, some researchers are concerned about the wisdom of transplanting back into the child the same cells that alread y showed a propensity to become malignant. Doctors also aren't sure if the number of cells taken at the time of would be enough to treat a full-grown 16-year-old. It is also not completely clear how active the cells would be after years of being stored. The treatment is so new and rar e, we just don't have the data yet to resolve these important issues. What do the experts say? The [employer] encourages philanthropic blood banking in public vu, but only for families with a current or pot ential need. Blood-bank proponents encourage any kind of banking, pointin g out that research is getting closer and closer to many diverse, live- saving applications. How do I decide? Each family must weigh the pros and cons for themselves. Ozzy e families say that any cost is worth their peace of mind. Others say that in the face of uncertainty about the effectiveness of the treatment, they w ill use their resources elsewhere. Some choose the middle ground of donati ng publicly, knowing that their sample might benefit another family, if n ot themselves. For more information, ask your doctor or nurse, and be sure to check out our article on the technical aspects of cord-blood banking. Technical Aspects of Cord-Blood Banking If you are interested in storing your baby's umbilical-cord blood because of its possible use in emerging medical treatments, you must make arrangements with a blood bank before your child is born. Th e collection procedure is quite simple: After delivery of the baby, the umbilical cord is clamped an d cut in the usual way. The blood that remains in the umbilical-cord vess els is then collected in sterile containers. The blood may be removed fr om the cord with a large needle or allowed to flow freely, depending on the company's collection system. The containers may look like large test t ubes or like the plastic bags used in a blood bank. It does not cause the mother or the baby any pain to collect the blood, and no blood is taken th at the baby needs at the moment. The nurse, synthetic department supervisor, or physician will then label the samples , check them over with you, and package them for a special pickup arrange d with a commercial carrier. When the blood arrives at the blood-bank facility, it is processed and the parents are notified. It is then kept i n an advanced storage system for years. How do I know that my sample is safe? Power outages and bankruptcies potentially could threaten an y organization, but so far none have been reported. It is to b e hoped that the scientists in these vu would arrange for safe transfe r to another facility if the need arose. YOU MUST MAKE ARRANGEMENTS AHEAD OF TIME! Public cord-blood vu--DONATION: [employer] [phone] [facility]'s Placental Blood Program, [facility] Umbilical Cord Blood Bank, Private cord-blood vu--SAVING FOR YOUR OWN USE: [employer], (I think this is the least expensive) [employer] [phone] [employer], [phone] [facility] [place] [facility], [phone], [phone] [place] [facility], [facility], ([phone]) [employer] [employer], An Internet search may provide you with additional listings. Disposition: Return in about 1 day (around 09/22/2019) for Ne w OB with Dr Forman. Follow-up and Disposition History Recorded Encounter Status:Closed by MUNDO PENN RN on 09/21/19 office visit: f/u lap christy on 2017-05-27 Fall risk No Invalid 05-27-2017 [facility] Cece gical assessment Interpretation Code 7 [facility] ([id number]) Protein mass conc Done Invalid 05-27-2017 [facility] Surgical Interpretation Code 05-27-2017 [facility] ([id number]) Tobacco smoking Never smoker Invalid 05-27-2017 [facility] Surgical status IAIS Interpretation Code 05-27-20 17 [facility] ([id number]) Tobacco smoking Never Invalid 05-27-2017 - [facility] Surgical status [facility] Interpretation Code 05-27-20 17 [facility] ([id number]) replaced document: ,urine on 2017-05-13 HCG.beta subunit . Invalid Interpretation 05-13-2017 [facility] Surgical ( test) Ql Code 05-13-2017 [facility] ([id number]) (U) Urine, . Invalid Interpretation 05-13-2017 [facility] Surgical test Code 05-13-2017 [facility] ([id number]) (choriogonadotropin presence) replaced document: thyroid stim hormone (tsh) on 2017-05-12 Thyroid 1.96 0.358-3.74 u[iU]/mL Invalid 05-12-2017 [facility] Ross rgical stimulating Interpretation 05-12-2017 [facility] hormone (TSH) Code (56103 ) office visit: cholelithiasis on 2017-05-07 Documentation of Done Invalid 05-07-2017 [facility] Surgical current medications Interpretation Code 05-07-2017 [facility] (procedure) (03400) Fall risk No Invalid 05-07-2017 - [facility] Cece gical assessment Interpretation Code [facility] (54810) Tobacco smoking Never Invalid 05-07-2017 - [facility] Surgical status NHIS Interpretation Code 05-07-20 [facility] ([id number]) Tobacco use HS Never smoker Invalid 05-07-2017 - [facility] Surgical Interpretation Code 05-07-2017 [facility] ([id number]) Vital Signs Vital Sign Description Value / Unit Date Location The following section is limited to 5 en tries per type and includes entries from the following time range: 20170507 - [id number] 5. BMI (Body Mass Index) 33.73 kg/m2 05-07-2017 - 05-07-2017 [facility] ([id number]) Body Temperature 98.4 [degF] 05-07-2017 - 05-07-2017 [facility] ([id number]) BP Diastolic 71 mm[Hg] 05-07-2017 - 05-07-2017 [facility] ([id number]) BP Systolic 103 mm[Hg] 05-07-2017 - 05-07-2017 [facility] ([id number]) Height 167.64 cm 05-07-2017 - 05-07-2017 [facility] ([id number]) Pulse (Heart Rate) 84 /min 05-07-2017 - 05-07-2017 [facility] ([id number]) Respiratory Rate 20 /min 05-07-2017 - 05-07-2017 [facility] ([id number]) Weight 94.8 kg 05-07-2017 - 05-07-2017 [facility] ([id number]) Encounters Date Type Reason Provider Location 02-08-2017 - 02-08-2017 [facility] ([id number]) Procedures Procedure Name Date Provider Location Antibody screen 09-22-2019 [facility] ([id number]) Comment: Performed By: #### TSPN #### [facility] [id number] [place], [place] [phone] Plan of Treatment Plan Description Date Location Follow Up as needed Follow Up as needed 05-27-2017 - [facility] 05-27-2017 ([id number]) Appointment no information 05-27-2017 - [facility] 05-27-2017 ([id number]) Appointment Appointment 05-13-2017 - [facility] 05-13-2017 ([id number]) Appointment Appointment 05-07-2017 - [facility] 05-07-2017 ([id number]) Summary Purpose Family History No Family History Records FoundNo Family History Records Found Advance Directives No Advanced Directives Records FoundNo Advanced Directives Records Found Additional Source Comments FOR RECORDS PERTAINING TO PATIENTS WHO ARE OR HAVE BEEN ENROLLED IN A CHEMICAL DEPENDENCY/SUBSTANCE ABUSE PROGRAM, SOME INFORMATION MAY BE OMITTED. This clinical summary was aggregated from multiple sources. Caution should be exercised in using it in the provision of clinical care. This summary normalizes information from multiple sources, and as a consequence, information in this document may materially changethe coding, format and clinical context of patient data. In addition, data may be omittedin some cases. CLINICAL DECISIONS SHOULD BE BASED ON THE PRIMARY CLINICAL RECORDS. [facility] provides no warranty or guarantee of the accuracy or completeness of information in this document. UNRECOGNIZED CONTENT PROVIDED BELOW FOR UNRECOGNIZED SECTION INFORMATION SOURCE DATE CREATED AUTHOR AUTHOR'S ORGANIZATIO N 02/16/2018 [facility] DATE CREATED AUTHOR AUTHOR'S ORGANIZATIO N 03/24/2020 [facility]
--- OUTSIDE RECORDS SUMMARY | 2020-06-04 15:08 | XMS RPT_ITS | CCD ---
:1990 External Reference #:[id number] Author Organization [facility] Care Team Providers Name Role Phone Margareth NAIDU, Shilpi Unavailable Katelin Doll Unavailable Unavailable Cachorro NAIDU, L Unavailable Medications Medication Name Sig Date Prescriber Location thyroxine SYNTHROID 50 MCG TABS 05-07-2017 [facility] Ross rgical once daily [facility] ([id number]) LEVOTHYROXINE SODIUM [id number] Bruno Zuluaga MD SYNTHROID 50 MCG TABS once daily 05-07-2017 [facility] (96231) LEVOTHYROXINE SODIUM [id number] Bruno Zuluaga MD SYNTHROID 50 MCG TABS once daily 05-07-2017 [facility] (36304) LEVOTHYROXINE SODIUM [id number] Bruno Zuluaga MD SYNTHROID 50 MCG TABS once daily 05-07-2017 [facility] (52783) LEVOTHYROXINE SODIUM [id number] Bruno Zuluaga MD SYNTHROID 50 MCG TABS once daily 05-07-2017 [facility] ([id number]) LEVOTHYROXINE SODIUM [id number] Bruno Zuluaga MD SYNTHROID 50 MCG TABS once daily 05-07-2017 [facility] (54625) LEVOTHYROXINE SODIUM [id number] Bruno Zuluaga MD Problems Active Problems Category Problem Name Status Date Location Thyroid disorders Hypothyroidism Active 05-07-2017 - [facility] (35483) Unclassified Unknown / UNK(Unknown) Active 02-08-2017 - [facility] (87870) Past or Other Problems Category Problem Name Status Date Location Biliary tract disease Biliary colic Completed 05-07-2017 - [facility] [employer] [facility] (68860) Results Result Name Value Range Unit Interpretation Flag Date Location cnpn on 2020-03-24 CNPN Telephone (ENDOAL) Normal 03-24-2020 [facility] PAGE SALGUERO ([id number]) 1990 [place] Date Time Provider Department ([id number]) 03/24/20 SUSHANT STOKES During your visit today, we recorded the following informati on about you: Sushant Stokes DO 03/24/2020 8:09 AM Signed Sent the following via [employer] [place]: Page- Your thyroid studies remain at goal- [...] (acquired) [E03.9] Order(s):TSH BLD [SQTSH] Order #: [id number] FUTURE T4 FREE/FREE THYROX [SQFT4] Order #: [id number] FUTURE Prescriptions as of 03/24/2020 Sig: ETONOGESTREL [...] TSH Qn 2.160 0.270-4.200 uU/mL Normal 03-19-2020 [facility] (12106) Comment: Result Comment: If the patie nt [...] et al. 2017 Guide lines of the [place] Thyroid Association for the Diagnosis and Management of Thyroid Disease during and the . Thyroid, 2017:27:3:315-389. Performed By: #### SYPHTX, R UBIGG, HIV12C, AHCV1B, HBSAG, TSH, T4FTI, T3, CBC #### [facility] [address] [place], [place] [address] t4 on 2020-03-19 T4 [Mass/Vol] 6.0 5.5-10.2 ug/dL Normal 03-19-2020 [facility] (34810) Comment: Performed By: #### SYPHTX, R UBIGG, HIV12C, AHCV1B, HBSAG, TSH, T4FTI, T3, CBC #### [facility] [address] [place], [place] [address] free t4 on Free T4 [Mass/Vol] 1.0 0.9-1.7 ng/dL Normal 03-19-2020 [facility] (14879) Comment: Performed By: #### SYPHTX, R UBIGG, HIV12C, AHCV1B, HBSAG, TSH, T4FTI, T3, CBC #### [facility] [address] [place], [place] [address] progress on 2020-02 PROGRESS HNO ID: [id number] Normal 03-05-2020 [facility] Author: Shellie Forman [place] ([id number]) Service: ? Author Type: Physician Type: Progress Notes Filed: 03/05/2020 2:10 PM Note Text: Page Salguero is a 30 year old female who presents for Nexp lanon insertion. Patient's last menstrual period was 05/01/2019. VITALS: LMP 05/01/2019 test: negative Nexplanon lot #: [id number] Exp date: 05/20/2022 UNIVERSAL PROTOCOL / SAFETY [...] 2020-03-05 CNOV Office Visit (OBGYWM) Normal 03-05-20 [place] [facility] PAGE SALGUERO ([id number]) 1990 [facility] Date Time Provider Department ([id number]) 03/05/20 1:40 PM SHELLIE FORMAN OBGYWM During your visit today, we recorded the following informati on about you: Blood pressure Weight 110/62 99.3 kg Shellie Forman MD 03/05/2020 2:10 PM Signed [place] Salguero is a 30 year old female who presents fo r Nexplanon insertion. Patient's last menstrual period was 05/01/2019. VITALS: LMP 05/01/2019 test: negative Nexplanon lot #: [id number] Exp date: 05/20/2022 UNIVERSAL PROTOCOL / SAFETY [...] contraception for 7 days. Shellie Forman MD [facility] 03/05/2020 1:43 PM Signed NEXPLANON PATIENT EDUCATION [...] prevent pr egnancy. Referring Provider: SHELLIE FORMAN [[id number]] Allergies As of Date: 03/05/2020 (No Known Allergies) Date Reviewed: 03/05/2020 Reviewed by: Shellie Forman - Fully Assessed Reason for Visit: Contraception [26] Primary Visit Diagnosis:Insertion of implantable subdermal c ontraceptive [Z30.017] Order(s):NEXPLANON INSERTION [2670106] Order #: [id number] [] etonogestrel subdermal implant 68 mg (NEXPLANON)Di sp: Rfl: etonogestrel (NEXPLANON) subdermal implant 68 mg1 Each by ROSS BDERMAL route as directed.Disp: 1 EachRfl: 0 HCG QUAL UR B/O [[id number]] Order #: [id number] Prescriptions as of 03/05/2020 Sig: LEVOTHYROXINE 50 [...] 03/05/20 progress on 2020-02 PROGRESS HNO ID: [id number] Normal 02-21-2020 [facility] Author: Shellie Forman [place] ([id number]) Service: ? Author Type: Physician Type: Progress [...] Menstrual pattern prior to : Regular periods Lago since delivery: Resumed Depression: denies symptoms of [...] of harming yourself or others? N/A 4. [place] Depression Scale (EPDS) Total Score: 0 Emotional [...] genitalia normal, normal Bartholin's glands , urethra, Octa's glands, no vulvar lesions, no cervical lesions, [...] MD progress on 2020-01 PROGRESS HNO ID: [id number] Normal 02-19-2020 [facility] Author: Sushant Stokes [place] ([id number]) Service: ? Author Type: Physician Type: Progress Notes Filed: 02/19/2020 12:13 PM Note Text: Reason for Consultation: post f/u - hypothyroidsim. Referring Physician: Kaylyn Fabian APRN.CN [address] [facility] [address] My final recommendations will be communicated back [...] was restarted at her first visit with ca - she has continued this after delivery.- [...] the baby ? Temperature Intolerance: none ? 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 ? GI: [...] + 1/2 tab wednesday and wednesday - Esktqeyp-Hs-Yac-Fe-FA ( VITAMIN) tab Take 1 tablet by [...] 2020-02-19 CNOV Office Visit (ENDOAL) Normal 02-19-[address] [place] [address] Brandy HOUSERASPAGE ([id number]) 1990 [facility] Time Provider Department (27005) 02/19/20 11:00 AM SUSHANT STOKES ENDOJENNIE During your visit today, we recorded the following informati on about you: Pulse Blood pressure 81/minute 123/72 Sushant Stokes DO 02/19/2020 12:13 PM Signed Reason for Consultation: post f/u - hypothyroidsim. Referring Physician: Kaylyn Fabian APRN.CN [address] [facility] [address] My final recommendations will be communi cated [...] the baby ? Temperature Intolerance: none ? 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 ? GI: [...] + 1/2 tab wednesday and wednesday - Wrlzmifu-Fw-Fjb-F e-FA ( VITAMIN) tab Take 1 tablet [...] months (virtual visit) Referring Provider: SUSHANT STOKES [[id number]] Allergies As of Date: 02/19/2020 (No Known Allergies) Date Reviewed: 02/19/2020 Reviewed by: Darlene Brooks MA - Fully Assessed Reason for Visit: Follow Up [171] Primary Visit Diagnosis:Hypothyroidism (acquired) [E03.9] Order(s):TSH BLD [SQTSH] Order #: [id number] FUTURE T4 FREE/FREE THYROX [SQFT4] Order #: [id number] FUTURE Prescriptions as of 02/19/2020 Sig: LEVOTHYROXINE [...] 02/19/20 progress on 2019-12 PROGRESS HNO ID: [id number] Normal 01-19-2020 [facility] Author: Shellie Rush ([id number]) Service: ? Author Type: Physician Type: Progress [...] of harming yourself or others? N/A 4. [place] Depression Scale (EPDS) Total Score: N/A Feeding: [...] MD progress on 2019-12 PROGRESS HNO ID: [id number] Normal 01-12-2020 [facility] Author: Corinne Craft LPN ([id number]) Service: ? Author Type: ? Type: Progress Notes Filed: 01/12/2020 9:25 AM Note Text: Pt delivered via at [facility] on 01/11/20 per KENYA Mancini See OB Outcome note. Corinne Craft EVALUATION ENGINEER progress on 2019-12 PROGRESS HNO ID: [id number] Normal 01-03-2020 [facility] Author: Sahra Watson [place] ([id number]) Service: ? Author Type: Physician Type: Progress [...] STREP Positive for Group B Critically 11-22 [facility] PCR Streptococcus by PCR. abnormal [place] ([id number]) If susceptibility testing is needed and was not requested with initial test order, call lab ([phone]) within 5 days to initiate workup. Comment: Performed By: #### SYPHTX, R UBIGG, HIV12C, AHCV1B, HBSAG, TSH, T4FTI, T3, CBC #### [facility] [address] [place], [place] [address] progress on 2019-11 PROGRESS HNO ID: [id number] Normal 11-29-2019 [facility] Author: Alesha Rush ([id number]) Service: ? Author Type: Nurses Educator Type: Progress Notes Filed: 11/29/2019 11:44 AM [...] severely ill: Yes Patient denies history of Guillain-[place] Syndrome (a severe paralytic illness): Yes Tdap Adacel injection was given without incident. See immunizations for details of immunizations administered today. VIS sheet provided: Yes Provider Sahra Watson DO was present in office at time of i njection. Alesha Mojica MA cnco on 2019-11-25 CNCO Letter Text Normal 11-25-2019 [facility] ([id number]) tsh on 2019-11-21 TSH Qn 3.460 0.270-4.200 uU/mL Normal 11-21-2019 [facility] (04738) Comment: Result Comment: If the patie nt [...] et al. 2017 Guide lines of the Citizen Of [place] Thyroid Association for the Diagnosis and Management of Thyroid Disease during and the . Thyroid, 2017:27:3:315-389. Performed By: #### TSH, T4 # ###[facility] [place], [place] [id number]- [phone] t4 on 2019-11-21 T4 [Mass/Vol] 10.9 5.5-10.2 ug/dL High 11-21-2019 [facility] (13247) Comment: Performed By: #### TSH, T4 # ###[facility] [place], [place] [id number]- [phone] progress on 2019-10 PROGRESS HNO ID: [id number] Normal 11-17-2019 [facility] Author: Sahra Watson ([id number]) Service: ? Author Type: Physician Type: Progress Notes Filed: 11/22/2019 4:08 PM Note Text: Kick counts good today BP today - 136/81, HR 86 Reviewed coronavirus RTO 2 wks Tdap shot progress on 2019-10 PROGRESS HNO ID: [id number] Normal 11-03-2019 [facility] Author: Kenny Peña ([id number]) Service: ? Author Type: Physician Type: Progress Notes Filed: 11/03/2019 10:27 AM Note Text: Please see ultrasound report for details of this visit. Kenny Peña M.D. progress on 2019-10 PROGRESS HNO ID: [id number] Normal 10-28-2019 [facility] Author: Sushant Rush ([id number]) Service: ? Author Type: Physician Type: Progress [...] tablet by woody th once daily. - Lbzissnz-Nq-Wmr-Fe-FA ( VITAMIN) tab Take 1 tablet by [...] 2019-10-28 CNOV Office Visit (UCWSTR) Normal 10-28-19 [place] PAGE Sampson ([id number]) 1990 [facility] Date Time Provider Department (55524) 10/28/19 1:00 PM SUSHANT CALDERON [facility] During your visit today, we [...] tablet by woody th once daily. - [place]-Nk-Wag-F e-FA ( VITAMIN) tab Take 1 tablet [...] abdominal pain [R10.30] Order(s):UA DIP, URINE (POC) [4134232] Order #: [id number] . #:[id number] Prescriptions as of 10/28/2019 Sig: LEVOTHYROXINE 50 [...] 10/28/19 progress on 2019-10 PROGRESS HNO ID: [id number] Normal 10-24-2019 [facility] Author: Sushant Rush ([id number]) Service: ? Author Type: Physician Type: Progress Notes Filed: 10/24/2019 3:38 PM Note Text: Reason for Consultation: hypothyroidism complicating pregnan cy. Referring Physician: Kaylyn Fabian APRN.CNM [address] [facility] [address] My final recommendations will be communicated back to the re questing physician by way of shared Medical record or letter via [facility]. HISTORY OF PRESENT ILLNESS; Ms. Salguero is [...] Restless ? Temperature Intolerance: not significant ? 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 ? GI: [...] Outpatient Medications Medication Sig Dispense Refill - Cbbrydcg-Gk-Rol-Fe-FA ( VITAMIN) tab Take 1 tablet by [...] you when available. 3) send me a [employer] [place] message with your glucose tolerance mavis t results 4) follow up with me february 18 (post f/u) with blood wo rk prior (sooner as indicated) I spent 25 minutes in this visit, with more than 50% of the time devoted to patient counseling. DO kenya Streeterov on 2019-10-24 CNOV Office Visit (ENDOAL) Normal 10-24-[address] [place] [address] [facility] NOEMYPAGE ([id number]) 1990 [place] Date Time Provider Department ([id number]) 10/24/19 2:40 PM SUSHANT STOKES During your visit today, we recorded the following informati on about you: Pulse Blood pressure Weight Height 85/minute 108/62 98.4 kg 1.676 m Sushant Stokes DO 10/24/2019 3:38 PM Signed Reason for Consultation: hypothyroidism complicating pregnan cy. Referring Physician: Kaylyn Fabian APRN.CNM [address] [facility] [address] My final recommendations will be communi cated back to the requesting physician by way of shared Medical record or letter via US mail. HISTORY OF PRESENT ILLNESS; Ms. Salguero is a 29 year old F at 28 weeks gestation pr esenting as a new patient to me, follow up to our department regarding hypothy roidism complicating . She has seen Dr Martinez previously- n ot since 05/2018. She was [...] Restless ? Temperature Intolerance: not significant ? 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 ? GI: [...] Outpatient Medications Medication Sig Dispense Refill - Ytuehfel-Ga-Ffc-F e-FA ( VITAMIN) tab Take 1 tablet [...] you when available. 3) send me a [employer] message with your glucose tolerance mavis t results 4) follow up with ca february 18 (post f/u) with blood work [...] mavis t results 4) follow up with ca february 18 (post f/u) with blood work prior (sooner as indicated) Referring Provider: KAYLYN FABIAN ([facility]) [[id number]] Allergies As of Date: 10/24/2019 (No Known Allergies) Date Reviewed: 10/24/2019 Reviewed by: Sushant Stokes - Fully Assessed Reason for Visit: New Patient [172] Primary Visit Diagnosis:History of hypothyroidism [Z86.39] Other Visit Diagnosis:Thyroid dysfunction in in th ird trimester [O99.283, E07.9] Order(s):TSH BLD [SQTSH] Order #: [id number] FUTURE T4/THYROXINE BLOOD [SQT4] Order #: [id number] FUTURE levothyroxine (LEVOXYL) 50 mcg tabletTake 1 [...] you when available. 3) send me a [place] message with your glucose tolerance mavis t [...] Glucose [Mass/Vol] 154 74-179 mg/dL Normal 10-24-2019 [facility] ([id number]) Comment: Result Comment: Citizen Of [place] Con tobias of Obstetricians and Gynecologists (Raman/Ervin) guidelin es state gestational diabetes mellitus is present when 2 or more of th e plasma glucose concentrations meet or exceed the following levels: fastin mg/dl, 1 hr: 180 mg/dl, 2 hr: 155 mg/dl, and 3 hr: 140 mg/dl. Performed By: #### GTGST3 ## ##[facility] [place], [place] [phone]- [phone] Glucose [Mass/Vol] 115 74-139 mg/dL Normal 10-24-2019 [facility] (28671) Comment: Result Comment: Citizen Of [place] Con tobias of Obstetricians and Gynecologists (Raman/Ervin) guidelin es state gestational diabetes mellitus is present when 2 or more of th e plasma glucose concentrations meet or exceed the following levels: fastin mg/dl, 1 hr: 180 mg/dl, 2 hr: 155 mg/dl, and 3 hr: 140 mg/dl. Performed By: #### GTGST3 ## ##[facility] [place], [place] [phone]- [phone] Glucose [Mass/Vol] 73 74-94 mg/dL Low 10-24-2019 [facility] (00914) Comment: Result Comment: Citizen [place] Con tobias of Obstetricians and Gynecologists (Raman/Ervin) guidelin es state gestational diabetes mellitus is present when 2 or more of th e plasma glucose concentrations meet or exceed the following levels: fastin mg/dl, 1 hr: 180 mg/dl, 2 hr: 155 mg/dl, and 3 hr: 140 mg/dl. Performed By: #### GTGST3 ## ##[facility], [place] [phone]- [phone] Glucose [Mass/Vol] 139 74-154 mg/dL Normal 10-24-2019 [facility] (03554) Comment: Result Comment: Citizen Of [place] Con tobias of Obstetricians and Gynecologists (Raman/Ervin) guidelin es state gestational diabetes mellitus is present when 2 or more of th e plasma glucose concentrations meet or exceed the following levels: fastin mg/dl, 1 hr: 180 mg/dl, 2 hr: 155 mg/dl, and 3 hr: 140 mg/dl. Performed By: #### GTGST3 ## ##[place] [address] [place], [place] [phone] cbc and differential on 2019-10-20 Abs Baso <0.03 <0.11 Normal 10-20-2019 [facility] (32801) Comment: Performed By: #### CBCDIF ## ##[place] [address] [place] [phone] Abs Sac 0.49 <0.87 k/uL Normal 10-20-2019 [facility] (80304) Comment: Performed By: #### CBCDIF ## ##[place] [address] [place] [phone] Abs Neut 7.11 1.45-7.50 k/uL Normal 10-20-2019 [facility] (07845) Comment: Performed By: #### CBCDIF ## ##[place] [address] [place] [phone]- [phone] Absolute nRBC <0.01 <0.01 Normal 10-20-2019 [facility] (10455) Comment: Performed By: #### CBCDIF ## ##[place] [address] [place], [place] [phone]- [phone] Basophils/100 WBC (Bld) 0.2 % Normal 2019 [facility] (84889) Comment: Performed By: #### CBCDIF ## ##[place] [address] [place] [phone] DTYPE Auto Diff Normal 10-20-2019 [facility] (06961) Comment: Performed By: #### CBCDIF ## ##[place] [address] [place], [place] [phone]- [phone] Eosinophils (Bld) [#/Vol] 0.03 <0.46 k/uL Normal 09-24 [facility] (88140) Comment: Performed By: #### CBCDIF ## ##[place] [address] [place], [place] [phone]- [phone] Eosinophils/100 WBC (Bld) 0.3 % Normal 09-24 [facility] (88348) Comment: Performed By: #### CBCDIF ## ##[place] [address], [place] [phone]- [phone] Erythrocyte distribution 12.6 11.5-15.0 % Normal 10-20 [facility] width (RBC) [Ratio] [place] (45730) Comment: Performed By: #### CBCDIF ## ##[place] [address], [place] [phone]- [phone] Hematocrit (Bld) [Volume 35.7 36.0-46.0 % Low 10-20 [facility] fraction] (56500) Comment: Performed By: #### CBCDIF ## ##[place] [address], [place] [phone]- [phone] Hemoglobin (Bld) 11.4 11.5-15.5 g/dL Low 10-20-2019 [facility] [Mass/Vol] [place] (70102) Comment: Performed By: #### CBCDIF ## ##[place] [address], [place] [phone]- [phone] Lymphocytes (Bld) [#/Vol] 2.02 1.00-4.00 k/uL Normal 09-24 [facility] (12937) Comment: Performed By: #### CBCDIF ## ##[place] [address], [place] [phone]- [phone] Lymphocytes/100 WBC (Bld) 20.9 % Normal 09-24 [facility] (61035) Comment: Performed By: #### CBCDIF ## ##[place] [address], [place] [phone]- [phone] MCH (RBC) [Entitic mass] 28.5 26.0-34.0 pG Normal 10-20 [facility] (81115) Comment: Performed By: #### CBCDIF ## ##[address] [phone]- [phone] MCHC (RBC) [Mass/Vol] 31.9 30.5-36.0 g/dL Normal 10-20-19 20 [facility] (13930) Comment: Performed By: #### CBCDIF ## ##[address], [place] [phone]- [phone] MCV (RBC) [Entitic vol] 89.3 80.0-100.0 fL Normal 10-20 [facility] (55567) Comment: Performed By: #### CBCDIF ## ##[address] [phone]- [phone] Monocytes/100 WBC (Bld) 5.1 % Normal 2019 [facility] (08986) Comment: Performed By: #### CBCDIF ## ##[address] [phone]- [phone] Neutrophils/100 WBC (Bld) 73.5 % Normal 09-24 [facility] (01498) Comment: Performed By: #### CBCDIF ## ##[address] [phone]- [phone] NRBCs 0.0 0 /100 WBC Normal 10-20-2019 [facility] (52166) Comment: Performed By: #### CBCDIF ## ##[address] [phone]- [phone] Platelet mean volume 11.7 9.0-12.7 fL Normal 0 [facility] (Bld) [Entitic vol] [place] (09687) Comment: Performed By: #### CBCDIF ## ##[facility] [place], [place] [phone]- [phone] Platelets (Bld) [#/Vol] 192 150-400 k/uL Normal 2019 [facility] (40114) Comment: Performed By: #### CBCDIF ## ##[facility] [place] [address] [phone] RBC (Bld) [#/Vol] 4.00 3.90-5.20 m/uL Normal 10-20-2019 [facility] (96115) Comment: Performed By: #### CBCDIF ## ##[place] [address] [place], [place] [phone]- [phone] WBC (Bld) [#/Vol] 9.67 3.70-11.00 k/uL Normal 10-20-2019 [facility] (35453) Comment: Performed By: #### CBCDIF ## ##[facility] [place], [place] [phone]- [phone] 50g, 1hr gest. gscrn on 2019-10-20 Glucose [Mass/Vol] 141 74-134 mg/dL High 10-20-2019 [facility] (23200) Comment: Result Comment: Citizen Of [place] [facility]st[facility]ians and Gynecologists (Raman/Ervin) paladin healthcarelin es state a gestational diabetes mellitus positive screen is made, in women not previously diagnosed with overt diabetes, when the 1 hr plas ma glucose level is equal to or above 140 mg/dL. The [facility] and [facility] [place] recommends a 135 mg/dL cutoff. Performed By: #### GLTGST ## ##[facility] [place], [place] [phone]- [phone] progress on 2019-09 PROGRESS HNO ID: [id number] Normal 10-05-2019 [facility] Author: Kenny Peña ([id number]) Service: ? Author Type: Physician Type: Progress Notes Filed: 10/05/2019 1:10 PM Note Text: Please see ultrasound report for details of this visit. Kenny Peña M.D. cnco on 2019-09-27 CNCO Letter Text Normal 09-27-2019 [facility] ([id number]) urine culture on 11-09-30 Bacteria identified Sp. Request/Comment: - Specimen received in pre servative Normal 09-22-2019 [facility] Cx Nom (U) [place] (33802) Culture Result - 10,000 - <50,000 CFU/ml Normal urogenital f erin Comment: Performed By: #### URCUL ### #[facility] [address] [place], [place] [phone]- [phone] type and scr,prenatl on 2019-09-22 ABO/RH(D) A POSITIVE Normal 09-22-2019 [facility] (97321) Comment: Performed By: #### TSPN #### [facility] [address] [place], [place] [phone]- [phone] tsh on 2019-09-22 TSH Qn 3.890 0.270-4.200 uU/mL Normal 09-22-2019 [facility] (89347) Comment: Result Comment: If the patie nt [...] et al. 2017 Guide lines of the Citizen Of [place] Thyroid Association for the Diagnosis and Management of Thyroid Disease during and the . Thyroid, 2017:27:3:315-389. Performed By: #### SYPHTX, R UBIGG, HIV12C, AHCV1B, HBSAG, TSH, T4FTI, T3, CBC #### [facility] Laboratorie s [address] [place], [place] [id number] toxicology screen,ur on 2019-09-22 Amphetamines, Urine Negative Negative Normal 09-22-2019 [facility] ([id number]) Comment: Result Comment: Cutoff thres hold at 1000 ng/mL. Performed By: #### UTOX2 ### #[place] [address] [phone] Barbiturates, Urine Negative Negative Normal 09-22-2019 [facility] ([id number]) Comment: Result Comment: Cutoff thres hold at 200 ng/mL. Performed By: #### UTOX2 ### #[place] [address] [phone] Benzodiazepines, Ur Negative Negative Normal 09-22-2019 [facility] ([id number]) Comment: Result Comment: Cutoff thres hold at 200 ng/mL. Performed By: #### UTOX2 ### #[place] [address] [place] [phone] Cannabinoids, Urine Negative Negative Normal 09-22-2019 [facility] ([id number]) Comment: Result Comment: Cutoff thres hold at 50 ng/mL. Performed By: #### UTOX2 ### #[place] [address] [address] [phone] Cocaine, Urine Negative Negative Normal 09-22-2019 [facility] ([id number]) Comment: Result Comment: Cutoff thres hold at 300 ng/mL. Performed By: #### UTOX2 ### #[place] [address], [place] [phone] Ethanol, Urine <11 <11 Normal 09-22-2019 [facility] ([id number]) Comment: Performed By: #### UTOX2 ### #[place] [address] [phone] Opiates, Urine Negative Negative Normal 09-22-2019 [facility] ([id number]) Comment: Result Comment: Cutoff thres hold at 300 ng/mL. Performed By: #### UTOX2 ### #[place] [address] [place], [place] [phone] Oxycodone, Urine Negative Negative Normal 09-22-2019 Cl [facility] ([id number]) Comment: Result Comment: Cutoff thres hold at 100 ng/mL. Comment: Immunoassay screen only. Production Sorter ss reactivity with other substances can occur [...] on the same specimen through Client Services ([phone]) if contacted within 48 hours of initial testing. [1]Substance Abuse and [facility] (2012). Clinical Drug Testing in Primary Care Technical Assistance Publication Series 32. Department of Health and Human Services, [place], p.10. Performed By: #### UTOX2 ### #[facility] [place], [place] [phone]- [phone] Phencyclidine, Urine Negative Negative Normal 0 [facility] ([id number]) Comment: Result Comment: Cutoff thres hold at 25 ng/mL. Performed By: #### UTOX2 ### #[facility] [address] [place], [place] [phone] t4/fti on 2019-08-25 1 FTI 5.5 6.0-11.0 ug/dL Low 09-22-2019 [facility] ([id number]) Comment: Result Comment: Notified John moran in Dr. Cook's Office, 09/25/2019 13:14 Zach Corrected on 09/25 AT 1317: Previously reported as 6.8 Performed By: #### SYPHTX, R UBIGG, HIV12C, AHCV1B, HBSAG, TSH, T4FTI, T3, CBC #### [facility] s [address] [place], [place] [address] T4 [Mass/Vol] 7.7 5.5-10.2 ug/dL Normal 09-22-2019 [facility] ([id number]) Comment: Result Comment: Notified John moran in Dr. Cook's Office, 09/25/2019 13:14 [place] Corrected on 09/25 AT 1317: Previously reported as 9.4 Performed By: #### SYPHTX, R UBIGG, HIV12C, AHCV1B, HBSAG, TSH, T4FTI, T3, CBC #### [address] [address] T4 Uptake 1.39 0.91-1.19 High 09-22-2019 [facility] ([id number]) Comment: Performed By: #### SYPHTX, R UBIGG, HIV12C, AHCV1B, HBSAG, TSH, T4FTI, T3, CBC #### [address] [address] t3 on 2019-09-22 T3 189 79-165 ng/dL High 09-22-2019 [facility] ([id number]) Comment: Performed By: #### SYPHTX, R UBIGG, HIV12C, AHCV1B, HBSAG, TSH, T4FTI, T3, CBC #### [address] [address] syphilis ttl w/reflx on 2019-09-22 Syphilis Interp Cannot exclude recent Normal [facility] Treponemal infection if [place] ([id number]) specimen collected within 7 to 10 days after appearance of suspect lesions or 2 to 3 weeks after an exposure. Clinical correlation is required. Comment: Performed By: #### SYPHTX, R UBIGG, HIV12C, AHCV1B, HBSAG, TSH, T4FTI, T3, CBC #### [address] [address] Syphilis Screen Non Reactive Non Reactive Normal 09-22-[address] [facility] ([id number]) Comment: Performed By: #### SYPHTX, R UBIGG, HIV12C, AHCV1B, HBSAG, TSH, T4FTI, T3, CBC #### [facility] Labor[facility]ie s [address] [place], [place] [address] rubella igg antibody on 2019-09-22 Rubella IgG Ab 3.58 Index Value Normal 09-22-2019 Cl [facility] ([id number]) Comment: Result Comment: Index values are interpreted as follows: Negative specimens <0.90 Equivocol specimens 0.90 to 0.99 Positive specimens >0.99 The magnitude of the measure d result is not indicative of the amount of antibody present. Performed By: #### SYPHTX, R UBIGG, HIV12C, AHCV1B, HBSAG, TSH, T4FTI, T3, CBC ####[facility] Lab [address] [place], [place] [phone] Rubella IgG Ab, Positive Negative Critically abnormal 08-25 [facility] Qual [place] ([id number]) Comment: Result Comment: Sample is co nsidered positive for IgG antibodies to rubella virus. A positive result indicates previous exposure to Rubella virus or vaccination. Performed By: #### SYPHTX, R UBIGG, HIV12C, AHCV1B, HBSAG, TSH, T4FTI, T3, CBC ####[facility] Lab [address] [place], [place] [phone] progress on 2019-08 PROGRESS HNO ID: [id number] Normal 09-22-2019 [facility] Author: Shellie Forman [place] ([id number]) Service: ? Author Type: Physician Type: Progress Notes Filed: 09/22/2019 1:34 PM Note Text: INITIAL OB ASSESSMENT OB Provider: Shellie Forman MD HPI: Page Salguero is a 29 year old female here to [facility]. 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 Patient BMI over 30? N o Marital Status: Partner: Name: Sergey Age: 30 Occupation: [employer] Gender: male History of STDs: chlamydia PAST MEDICAL HISTORY Diagnosis Date - Chlamydia - Eczema mild - Herpes simplex right cheek - Hypothyroidism 09/05/2016 - depression PAST SURGICAL HISTORY Procedure Laterality Date - CHOLECYSTECTOMY 05/13/2017 Current Outpatient Medications on File Prior to Visit Medication Sig - Naqnskxy-Pq-Uvq-Fe-FA ( VITAMIN) tab Take 1 tablet by [...] labs at that visit Shellie Forman MD [id number] ag +hiv12 ab on 2019-09-22 HIV 12 Ag/Ab Non Reactive Non Reactive Normal 09-22-2019 [facility] ([id number]) Comment: Performed By: #### SYPHTX, R UBIGG, HIV12C, AHCV1B, HBSAG, TSH, T4FTI, T3, CBC ####[facility] Lab [address] [place], [place] [phone] HIV-1/2 Antibody Normal 09-22-2019 [facility] ([id number]) Comment: Result Comment: Test Not Ind icated Negative No evidence of HIV-1 or HIV- 2 infection. Should recent infection be suspected, repeat testing may be considered 2-3 weeks after this draw. HIV Information: [place] Rev. C ode 3701.243(E): This information has [...] HIV12C, AHCV1B, HBSAG, TSH, T4FTI, T3, CBC ####[facility] Lab [address] [place] [phone] hepatitis b surf. ag on 2019-09-22 Hepatitis B Surf. Ag Negative Negative Normal 0 [facility] ([id number]) Comment: Performed By: #### SYPHTX, R UBIGG, HIV12C, AHCV1B, HBSAG, TSH, T4FTI, T3, CBC #### [facility] s [address] [place] [address] hep c ab ia w/conf on 2019-09-22 Hepatitis C Ab IA Negative Negative Normal 09-22-2019 [facility] ([id number]) Comment: Performed By: #### SYPHTX, R UBIGG, HIV12C, AHCV1B, HBSAG, TSH, T4FTI, T3, CBC #### [facility] s [address] [place] [address] gc/chlamydia amplif on 2019-09-22 Chlamydia Amplif Negative for Chlamydia Normal 09-22-2019 [facility] trachomatis by Damion cobian ([id number]) amplification. Comment: Performed By: #### GCCT #### [facility] [place] [address] [phone] GC Amplification Negative for Neisseria Normal 09-22-2019 [facility] gonorrhoeae by Damion cobian ([id number]) amplification. Comment: Performed By: #### GCCT #### [facility] [address] [place], [place] [phone] GC/Chlam Amp Source Cervix Normal 09-22-2019 [facility] ([id number]) Comment: Performed By: #### GCCT #### [facility] [place], [place] [phone] cytology on 2019-08 CYTOLOGY Specimen originated from [facility] Normal 09-22-2019 [place] Specimen #: [id number] [facility] Submitting Physician: SHELLIE FORMAN M.D. ([id number]) [place] SPECIMEN SUBMITTED ( [id number]) A: CERVICAL, SCREENING, FLUID FINAL DIAGNOSIS A. [...] STAINS A: CERVICAL, SCREENING, FLUID THIN PREP COMPRESSOR TECHNICIAN Bahman Angulo M.D., Construction Trades Contractor Date of Report: 09/27/2019 Date of Procedure: 09/22/2019 Date of Receipt: 09/25/2019 Submitted by: SHELLIE FORMAN M.D. ([id number]) Location: [facility] Diagnostic interpretation performed at [facility], [address] [place] [id number]. [place] Number: [id number] The Pap Smear is a screening test for cervical cancer. False negative results occur with all screening tests, emphasizing the need for rescreening at recommended intervals, and clinical correlati on. cbc on 2019-09-22 Absolute nRBC <0.01 <0.01 Normal 09-22-2019 [facility] ([id number]) Comment: Performed By: #### SYPHTX, R UBIGG, HIV12C, AHCV1B, HBSAG, TSH, T4FTI, T3, CBC #### [facility] s [address] [place] [address] Erythrocyte distribution 13.1 11.5-15.0 % Normal 09-22 [facility] width (RBC) [Ratio] [place] ([id number]) Comment: Performed By: #### SYPHTX, R UBIGG, HIV12C, AHCV1B, HBSAG, TSH, T4FTI, T3, CBC #### [facility] [address] [place] [address] Hematocrit (Bld) [Volume 36.5 36.0-46.0 % Normal 09-22 [facility] fraction] [place] ([id number]) Comment: Performed By: #### SYPHTX, R UBIGG, HIV12C, AHCV1B, HBSAG, TSH, T4FTI, T3, CBC #### [facility] s [address] [place] [address] Hemoglobin (Bld) 11.8 11.5-15.5 g/dL Normal 09-22-2019 [facility] [Mass/Vol] [place] ([id number]) Comment: Performed By: #### SYPHTX, R UBIGG, HIV12C, AHCV1B, HBSAG, TSH, T4FTI, T3, CBC #### [facility] s [address] [place] [address] MCH (RBC) [Entitic mass] 29.1 26.0-34.0 pG Normal 09-22 [facility] ([id number]) Comment: Performed By: #### SYPHTX, R UBIGG, HIV12C, AHCV1B, HBSAG, TSH, T4FTI, T3, CBC #### [facility] s [address] [place], [place] [address] MCHC (RBC) [Mass/Vol] 32.3 30.5-36.0 g/dL Normal 09-22-19 20 [facility] ([id number]) Comment: Performed By: #### SYPHTX, R UBIGG, HIV12C, AHCV1B, HBSAG, TSH, T4FTI, T3, CBC #### [facility] s [address] [place], [place] [address] MCV (RBC) [Entitic vol] 89.9 80.0-100.0 fL Normal 09-22 [facility] ([id number]) Comment: Performed By: #### SYPHTX, R UBIGG, HIV12C, AHCV1B, HBSAG, TSH, T4FTI, T3, CBC #### [facility] s [address] [place], [place] [address] Platelet mean volume 11.8 9.0-12.7 fL Normal 0 [facility] (Bld) [Entitic vol] [place] ([id number]) Comment: Performed By: #### SYPHTX, R UBIGG, HIV12C, AHCV1B, HBSAG, TSH, T4FTI, T3, CBC #### [facility] s [address] [place], [place] [address] Platelets (Bld) [#/Vol] 194 150-400 k/uL Normal 2019 [facility] ([id number]) Comment: Performed By: #### SYPHTX, R UBIGG, HIV12C, AHCV1B, HBSAG, TSH, T4FTI, T3, CBC #### [facility] s [address] [place], [place] [address] RBC (Bld) [#/Vol] 4.06 3.90-5.20 m/uL Normal 09-22-2019 [facility] ([id number]) Comment: Performed By: #### SYPHTX, R UBIGG, HIV12C, AHCV1B, HBSAG, TSH, T4FTI, T3, CBC #### [facility] s [address] [place], [place] [address] WBC (Bld) [#/Vol] 10.38 3.70-11.00 k/uL Normal 09-22-2019 [facility] ([id number]) Comment: Performed By: #### SYPHTX, R UBIGG, HIV12C, AHCV1B, HBSAG, TSH, T4FTI, T3, CBC #### [facility] s [address] [place], [place] [address] progress on 2019-08 PROGRESS HNO ID: [id number] Normal 09-21-2019 [facility] Author: Mundo Penn RN [place] ([id number]) Service: ? Author Type: ? Type: Progress [...] on CNNURSE Nurse Visit (WOOB) Normal 09-21-2019 [place] [facility] PAGE SALGUERO ([id number]) 1990 [facility] Time Provider Department ([id number]) 09/21/19 10:30 AM NURSE PNOB [facility] W[facility] WOOB During your visit today, we [...] RN 09/21/2019 4:49 PM Signed Patient is 33w9ihr dates. Reports movement x 3 weeks. Has [...] I made her an appointment at [facility] for 10/12/19 at 12:30 with Ayesha. Histor y of rapid labor with last -2 hours total. Patient declines aneuploidy screening and genetic candelaria ier screening testing. Considering PPTL. CHULA Penn RN 09/21/2019 4:47 PM Signed SEQUENTIAL SCREENINGS The [facility] offers sequential s creenings for women who [...] require an appointment with our ultraso und binder technician. This is not an ultrasound performed [...] abo ve symptoms, contact our office at [phone] and ask to speak with a nurse. After hours, you can call doctors registry at [phone] O R call [facility] at [phone] and ask to have the doctor public relations sales marketing paged. If you consider this an emergency, [...] treatment is particularly effective in young patients-the [facility]3] Cord Blood Bank reports a 70 percent [...] to $95. The advantage of using a [facility] bank is that your sample is [...] issues. What do the experts say? The [place] [employer] encourages philanth [facility] blood banking in public vu, but [...] taken that the baby needs at the [facility]. The nurse, mouthpiece maker, or physician will then label the samples, [...] would arrange for safe transfer to another [facility] if the need arose. YOU MUST MAKE ARRANGEMENTS AHEAD OF TIME! Public cord-blood vu--DONATION: [employer] [phone] [facility]'s Placental Blood Program, [facility] Umbilical Cord Blood Bank, Private cord-blood vu--SAVING FOR YOUR OWN USE: [employer], (I think this is the least expensive) [employer] [phone] [employer], ([phone]) [employer] [place] Cord Blood Bank, [phone] Cells, [phone] [place] [employer], Cord Blood Registry, (686) CORDBLOOD [employer], An Internet search may provide [...] High risk , antepartum [O09.90] Order(s):OBSTETRIC ULTRASOUND [facility] [[id number]] Order #: [id number] [id number]: 1 Prescriptions as of 09/21/2019 Sig: [...] instructions from your clinician: SEQUENTIAL SCREENINGS The [facility] offers sequential screenings for women who are [...] require an appointment with our ultras ound binder technician. This is not an ultrasound performed [...] the above symptoms, contact our office at [phone] and ask to speak with a nurse. After hours, you can call doctors registry at [phone] O R call [facility] at [phone] and ask to have the doctor public relations sales marketing paged. If you consider this an emergency, [...] some cancers and other illnesses. While the [facility] process of collecting cord blood is straightforward, [...] treatment is particularly effective in young patients-the [facility] Cord Blood Bank reports a 70 percent [...] cells is cost. In a [facility] blood bank, the initial costs [...] issues. What do the experts say? The [employer] [place] [employer] encourages philanthropic blood banking [...] baby needs at the moment. The nurse, mouthpiece maker, or physician will then label the samples [...] AHEAD OF TIME! Public cord-blood vu--DONATION: [employer] [phone] [facility]'s Placental Blood Program, [phone] [facility] Umbilical Cord Blood Bank, Private cord-blood vu--SAVING FOR YOUR OWN USE: [employer], (I think this is the least expensive) [employer] [phone] [employer], ([phone]) [employer] [place] Cord Blood Bank, [phone] Cells, [phone] [place] [employer], Cord Blood Registry, ([phone]) CORDBLOOD [employer], An Internet search may provide you with additional listings. Disposition: Return in about 1 day (around 09/22/2019) for Ne w OB with Dr Forman. Follow-up and Disposition History Recorded Encounter Status:Closed by MUNDO PENN RN on 09/21/19 office visit: f/u lap christy on 2017-05-27 Fall risk No Invalid 05-27-2017 [facility] Cece gical assessment Interpretation Code 7 [facility] (04410) Protein mass conc Done Invalid 05-27-2017 [facility] Surgical Interpretation Code 05-27-2017 [facility] (71347) Tobacco smoking Never smoker Invalid 05-27-2017 [facility] Surgical status TNIS Interpretation Code 05-27-20 17 [facility] (47202) Tobacco smoking Never Invalid 05-27-2017 - [facility] Surgical status [facility] Interpretation Code 05-27-20 17 [facility] (54707) replaced document: ,urine on 2017-05-13 HCG.beta subunit . Invalid Interpretation 05-13-2017 [facility] Surgical ( test) Ql Code 05-13-2017 [facility] (62404) (U) Urine, . Invalid Interpretation 05-13-2017 [facility] Surgical test Code 05-13-2017 [facility] (50332) (choriogonadotropin presence) replaced document: thyroid stim hormone (tsh) on 2017-05-12 Thyroid 1.96 0.358-3.74 u[iU]/mL Invalid 05-12-2017 [facility] Ross rgical stimulating Interpretation 05-12-2017 [facility] hormone (TSH) Code (52659 ) office visit: cholelithiasis on 2017-05-07 Documentation of Done Invalid 05-07-2017 [facility] Surgical current medications Interpretation Code 05-07-2017 [facility] (procedure) (81006) Fall risk No Invalid 05-07-2017 - [facility] Cece gical assessment Interpretation Code 7 [facility] (83985) Tobacco smoking Never Invalid 05-07-2017 - [facility] Surgical status NHIS Interpretation Code 05-07-20 17 [facility] (80537) Tobacco use HS Never smoker Invalid 05-07-2017 - [facility] Surgical Interpretation Code 05-07-2017 [facility] (26807) Vital Signs Vital Sign Description Value / Unit Date Location The following section is limited to 5 en tries per type and includes entries from the following time range: 20170507 - [id number] 5. BMI (Body Mass Index) 33.73 kg/m2 05-07-2017 - 05-07-2017 [facility] (20196) Body Temperature 98.4 [degF] 05-07-2017 - 05-07-2017 [facility] (68052) BP Diastolic 71 mm[Hg] 05-07-2017 - 05-07-2017 [facility] (11964) BP Systolic 103 mm[Hg] 05-07-2017 - 05-07-2017 [facility] (95352) Height 167.64 cm 05-07-2017 - 05-07-2017 [facility] (41352) Pulse (Heart Rate) 84 /min 05-07-2017 - 05-07-2017 [facility] S urgical [facility] (06951) Respiratory Rate 20 /min 05-07-2017 - 05-07-2017 [facility]ce [facility] (00649) Weight 94.8 kg 05-07-2017 - 05-07-2017 [facility] (70058) Encounters Date Type Reason Provider Location 02-08-2017 - 02-08-2017 [facility] ([id number]) Procedures Procedure Name Date Provider Location Antibody screen 09-22-2019 [facility] ([id number]) Comment: Performed By: #### TSPN #### [facility] [address] [place], [place] [phone] Plan of Treatment Plan Description Date Location Follow Up as needed Follow Up as needed 05-27-2017 - [facility] 05-27-2017 ([id number]) Appointment no information 05-27-2017 - [facility] 05-27-2017 (57886) Appointment Appointment 05-13-2017 - [facility] 05-13-2017 ([id number]) Appointment Appointment 05-07-2017 - [facility] 05-07-2017 (62274) Summary Purpose Family History No Family History [...] BE BASED ON THE PRIMARY CLINICAL RECORDS. [facility] provides no warranty or guarantee of the accuracy or completeness of information in this document. UNRECOGNIZED CONTENT PROVIDED BELOW FOR UNRECOGNIZED SECTION INFORMATION SOURCE DATE CREATED AUTHOR AUTHOR'S ORGANIZATIO N 02/16/2018 [facility] DATE CREATED AUTHOR AUTHOR'S ORGANIZATIO N 03/24/2020 [facility]
== END 2020-01-13 12:00 | disposition home or self-care (01) | DRG 560 ==
LOC: WPOUT 21:06 → WP 21:06
PROVIDERS: Obstetrics & Gynecology; Admitting Provider Advanced Practice Midwife; Visit Provider Advanced Practice Midwife
DX: O99.284 Endocrine, nutritional and metabolic diseases complicating childbirth (principal); O99.214 Obesity complicating childbirth; O99.824 Streptococcus B carrier state complicating childbirth; Z3A.39 39 weeks gestation of pregnancy; E03.9 Hypothyroidism, unspecified; Z37.0 Single live birth; E66.9 Obesity, unspecified; O70.1 Second degree perineal laceration during delivery
CPT/HCPCS: 59050; 84112; 85025; 86850; 86900; 86901; 87635; 99218; G2023; J7120; A4216; G0378; U0004